=== PATIENT | female | born 1970 | race Caucasian/White ===

== ENCOUNTER 2018-10-24 22:04 | Emergency (ER) | payer OTHER ==
[~2018-10-24] VITALS: Ht 162.6 cm; Wt 118.4 kg
[2018-10-24] MEDS ORDERED: ALBU2.5V5 (22:47)
[2018-10-24] MEDS ORDERED: BENZ100A (22:47)
[2018-10-24] MEDS ORDERED: GABA100 (22:48)
[2018-10-24] MEDS ORDERED: Cough Syru100 MG/5 M (22:48)
[2018-10-24] MEDS ORDERED: MECL12.5 (22:48)
[2018-10-24] MEDS ORDERED: NITR.4SL (22:49)
[2018-10-24] MEDS ORDERED: [UNRECOGNIZED DRUG - REMARK] (22:49)
[2018-10-24] MEDS ORDERED: NYST100000 (22:50)
[2018-10-24] MEDS ORDERED: Zantac150 MG (22:50)
== END 2018-10-24 23:20 | disposition home or self-care (01) ==
LOC: ER 22:04
DX: M72.2 Plantar fascial fibromatosis (principal); Z88.0 Allergy status to penicillin; Z88.8 Allergy status to other drugs, medicaments and biological substances; Z88.6 Allergy status to analgesic agent; Z91.018 Allergy to other foods; Z91.048 Other nonmedicinal substance allergy status; Z79.899 Other long term (current) drug therapy; Z79.82 Long term (current) use of aspirin; E11.9 Type 2 diabetes mellitus without complications; J45.909 Unspecified asthma, uncomplicated; I25.2 Old myocardial infarction
CPT/HCPCS: 73630; 99283-25

== ENCOUNTER 2018-10-28 16:06 | Emergency (ER) | payer OTHER ==
[~2018-10-28] VITALS: Ht 162.6 cm; Wt 160.6 kg
[~2018-10-28 16:06] MED LIST: ALBU2.5V5; BENZ100A; Cough Syru100 MG/5 M; GABA100; MECL12.5; NITR.4SL; NYST100000; Zantac150 MG; [UNRECOGNIZED DRUG - REMARK]
[2018-10-28 16:47] LABS: BASOPHILS ABSOLUTE AUTO 0.05 K/mm3 (0.00-0.23); BASOPHILS PERCENT AUTO 1 % (0-2); EOSINOPHILS ABSOLUTE AUTO 0.15 K/mm3 (0.00-0.68); EOSINOPHILS PERCENT AUTO 2 % (0-6); Hematocrit 44.3 % (33.0-51.0); Hemoglobin 14.1 g/dL (11.5-16.0); IMMATURE GRAN ABSOLUTE AUTO 0.03 K/mm3 (0.00-0.10); IMMATURE GRAN PERCENT AUTO 0 % (0-1); LYMPHOCYTES ABSOLUTE AUTO 1.68 K/mm3 (0.84-5.20); LYMPHOCYTES PERCENT AUTO 19 % (21-46); MONOCYTES ABSOLUTE AUTO 0.79 K/mm3 (0.16-1.47); MONOCYTES PERCENT AUTO 9 % (4-13); Mean Corpuscular HGB 28.1 pg (26.0-34.0); Mean Corpuscular HGB Conc 31.8 g/dL (31.5-36.5); Mean Corpuscular Volume 88 fL (80-100); Mean Platelet Volume 10.6 fL (9.1-12.4); NEUTROPHILS ABSOLUTE AUTO 5.95 K/mm3 (1.96-9.15); NEUTROPHILS PERCENT AUTO 69 % (41-73); Platelet Count 237 K/mm3 (150-400); RDW Coefficient Variation 15.7 % (11.7-14.2); RDW Standard Deviation 50.1 fL (35.1-46.3); Red Blood Cell Count 5.02 M/mm3 (3.80-5.20); White Blood Cell Count 8.65 K/mm3 (4.00-11.30)
[2018-10-28 17:09] LABS: Troponin I <0.015 ng/mL (0.000-0.040)
[2018-10-28 17:10] LABS: Alanine Aminotransfer (ALT/SGP 47 U/L (12-78); Albumin, Blood 3.5 g/dL (3.4-5.0); Albumin/Globulin Ratio 0.9 (0.8-1.8); Alk Phos 111 U/L (50-136); Anion Gap 6 mmol/L (6-16); Aspartate Aminotrans (AST/SGOT 25 U/L (12-37); Bilirubin, Total 0.2 mg/dL (0.1-1.0); Blood Urea Nitrogen 12 mg/dL (8-24); Bun/Creatinine Ratio 13.6 (12.0-20.0); CO2, Blood 28 mmol/L (21-32); Chloride, Blood 105 mmol/L (98-108); Creatinine, Blood 0.88 mg/dL (0.40-1.00); Globulin, Blood 4.1 g/dL (2.2-4.0); Glomerular Filtration Rate >60 (60-); Glucose, Blood 259 mg/dL (70-99); Potassium, Blood 3.1 mmol/L (3.5-5.5); Sodium, Blood 139 mmol/L (136-145); Total Protein, Blood 7.6 g/dL (6.4-8.2)
[2018-10-28] MEDS ORDERED: Pepcid20 MG PO (22:12)
== END 2018-10-28 22:37 | disposition home or self-care (01) ==
LOC: ER 16:06
PROVIDERS: Physician Assistant
DX: R07.89 Other chest pain (principal); G89.29 Other chronic pain; Z88.0 Allergy status to penicillin; Z88.8 Allergy status to other drugs, medicaments and biological substances; Z88.6 Allergy status to analgesic agent; Z91.018 Allergy to other foods; Z79.899 Other long term (current) drug therapy; Z79.82 Long term (current) use of aspirin; E11.9 Type 2 diabetes mellitus without complications; I25.2 Old myocardial infarction
CPT/HCPCS: 36415; 71046; 80053; 83880; 84484; 85025; 93005; 93010; 96374; 96375; 99285-25; J1170; J2405

== ENCOUNTER 2018-10-30 04:35 | Emergency (ER) | payer OTHER ==
[~2018-10-30] VITALS: Ht 162.6 cm; Wt 160.6 kg
[~2018-10-30 04:35] MED LIST changes: +Pepcid20 MG PO
[2018-10-30 05:18] LABS: BASOPHILS ABSOLUTE AUTO 0.04 K/mm3 (0.00-0.23); BASOPHILS PERCENT AUTO 1 % (0-2); EOSINOPHILS PERCENT AUTO 2 % (0-6); Hematocrit 40.5 % (33.0-51.0); Hemoglobin 12.5 g/dL (11.5-16.0); IMMATURE GRAN ABSOLUTE AUTO 0.03 K/mm3 (0.00-0.10); IMMATURE GRAN PERCENT AUTO 0 % (0-1); LYMPHOCYTES ABSOLUTE AUTO 1.77 K/mm3 (0.84-5.20); LYMPHOCYTES PERCENT AUTO 20 % (21-46); MONOCYTES ABSOLUTE AUTO 0.82 K/mm3 (0.16-1.47); MONOCYTES PERCENT AUTO 9 % (4-13); Mean Corpuscular HGB 28.4 pg (26.0-34.0); Mean Corpuscular HGB Conc 30.9 g/dL (31.5-36.5); Mean Platelet Volume 10.4 fL (9.1-12.4); NEUTROPHILS ABSOLUTE AUTO 5.99 K/mm3 (1.96-9.15); NEUTROPHILS PERCENT AUTO 68 % (41-73); Platelet Count 216 K/mm3 (150-400); RDW Coefficient Variation 15.7 % (11.7-14.2); RDW Standard Deviation 52.4 fL (35.1-46.3); White Blood Cell Count 8.85 K/mm3 (4.00-11.30)
[2018-10-30 05:21] LABS: Mean Corpuscular Volume 92 fL (80-100)
[2018-10-30 05:39] LABS: Alanine Aminotransfer (ALT/SGP 37 U/L (12-78); Albumin, Blood 2.7 g/dL (3.4-5.0); Albumin/Globulin Ratio 0.8 (0.8-1.8); Alk Phos 88 U/L (50-136); Anion Gap 4 mmol/L (6-16); Aspartate Aminotrans (AST/SGOT 18 U/L (12-37); Bilirubin, Total 0.2 mg/dL (0.1-1.0); Blood Urea Nitrogen 15 mg/dL (8-24); Bun/Creatinine Ratio 15.9 (12.0-20.0); CO2, Blood 31 mmol/L (21-32); Calcium, Blood 8.7 mg/dL (8.5-10.1); Chloride, Blood 108 mmol/L (98-108); Creatinine, Blood 0.94 mg/dL (0.40-1.00); Globulin, Blood 3.6 g/dL (2.2-4.0); Glomerular Filtration Rate >60 (60-); Glucose, Blood 151 mg/dL (70-99); Potassium, Blood 3.5 mmol/L (3.5-5.5); Sodium, Blood 143 mmol/L (136-145); Total Protein, Blood 6.3 g/dL (6.4-8.2); Troponin I <0.015 ng/mL (0.000-0.040)
[2018-10-30] MEDS ORDERED: ONDA4ODT MM (06:07)
== END 2018-10-30 06:25 | disposition home or self-care (01) ==
LOC: ER 04:35
PROVIDERS: Emergency Medicine
DX: R07.89 Other chest pain (principal); Z88.0 Allergy status to penicillin; Z88.8 Allergy status to other drugs, medicaments and biological substances; Z88.6 Allergy status to analgesic agent; Z88.7 Allergy status to serum and vaccine; Z91.018 Allergy to other foods; Z91.048 Other nonmedicinal substance allergy status; Z79.899 Other long term (current) drug therapy; Z79.82 Long term (current) use of aspirin; E11.9 Type 2 diabetes mellitus without complications
CPT/HCPCS: 36415; 71046; 80053; 84484; 85025; 93005; 93010; 96374; 99285-25; J2405

== ENCOUNTER 2018-11-01 22:50 | Emergency (ER) | payer OTHER ==
[~2018-11-01] VITALS: Ht 167.6 cm; Wt 168.3 kg
[~2018-11-01 22:50] MED LIST changes: +ONDA4ODT MM
[2018-11-01 23:09] LABS: BASOPHILS ABSOLUTE AUTO 0.05 K/mm3 (0.00-0.23); BASOPHILS PERCENT AUTO 1 % (0-2); EOSINOPHILS ABSOLUTE AUTO 0.24 K/mm3 (0.00-0.68); EOSINOPHILS PERCENT AUTO 2 % (0-6); Hematocrit 40.6 % (33.0-51.0); Hemoglobin 12.7 g/dL (11.5-16.0); IMMATURE GRAN ABSOLUTE AUTO 0.04 K/mm3 (0.00-0.10); IMMATURE GRAN PERCENT AUTO 0 % (0-1); LYMPHOCYTES ABSOLUTE AUTO 1.85 K/mm3 (0.84-5.20); LYMPHOCYTES PERCENT AUTO 17 % (21-46); MONOCYTES ABSOLUTE AUTO 0.88 K/mm3 (0.16-1.47); MONOCYTES PERCENT AUTO 8 % (4-13); Mean Corpuscular HGB 28.8 pg (26.0-34.0); Mean Corpuscular HGB Conc 31.3 g/dL (31.5-36.5); Mean Corpuscular Volume 92 fL (80-100); Mean Platelet Volume 10.6 fL (9.1-12.4); NEUTROPHILS ABSOLUTE AUTO 7.87 K/mm3 (1.96-9.15); NEUTROPHILS PERCENT AUTO 72 % (41-73); Platelet Count 220 K/mm3 (150-400); RDW Coefficient Variation 15.8 % (11.7-14.2); RDW Standard Deviation 53.2 fL (35.1-46.3); Red Blood Cell Count 4.41 M/mm3 (3.80-5.20); White Blood Cell Count 10.93 K/mm3 (4.00-11.30)
[2018-11-01 23:31] LABS: International Normalized Ratio 1.01; Prothrombin Time Results 10.7 Sec (9.7-11.5)
[2018-11-01 23:32] LABS: Alanine Aminotransfer (ALT/SGP 34 U/L (12-78); Albumin, Blood 2.7 g/dL (3.4-5.0); Albumin/Globulin Ratio 0.7 (0.8-1.8); Alk Phos 89 U/L (50-136); Anion Gap 7 mmol/L (6-16); Aspartate Aminotrans (AST/SGOT 25 U/L (12-37); Bilirubin, Total 0.4 mg/dL (0.1-1.0); Blood Urea Nitrogen 14 mg/dL (8-24); Bun/Creatinine Ratio 15.7 (12.0-20.0); CO2, Blood 30 mmol/L (21-32); Calcium, Blood 8.8 mg/dL (8.5-10.1); Chloride, Blood 106 mmol/L (98-108); Creatinine, Blood 0.89 mg/dL (0.40-1.00); Globulin, Blood 3.9 g/dL (2.2-4.0); Glomerular Filtration Rate >60 (60-); Glucose, Blood 147 mg/dL (70-99); Potassium, Blood 3.7 mmol/L (3.5-5.5); Sodium, Blood 143 mmol/L (136-145); Total Protein, Blood 6.6 g/dL (6.4-8.2); Troponin I <0.015 ng/mL (0.000-0.040)
[2018-11-02] MEDS ORDERED: Prednisone20 MG PO (01:00)
== END 2018-11-02 01:19 | disposition home or self-care (01) ==
LOC: ER 22:50
PROVIDERS: Emergency Medicine
DX: R07.9 Chest pain, unspecified (principal); Z88.0 Allergy status to penicillin; Z88.8 Allergy status to other drugs, medicaments and biological substances; Z88.1 Allergy status to other antibiotic agents; Z88.5 Allergy status to narcotic agent; Z88.7 Allergy status to serum and vaccine; Z88.6 Allergy status to analgesic agent; Z91.018 Allergy to other foods; Z79.899 Other long term (current) drug therapy; Z79.82 Long term (current) use of aspirin; E11.9 Type 2 diabetes mellitus without complications; J45.909 Unspecified asthma, uncomplicated; I25.2 Old myocardial infarction; F25.9 Schizoaffective disorder, unspecified
CPT/HCPCS: 71046; 80053; 84484; 85025; 85610; 85730; 93005; 93010; 99285-25

== ENCOUNTER 2018-11-02 22:07 | Emergency (ER) | payer OTHER ==
[~2018-11-02] VITALS: Ht 157.5 cm; Wt 168.3 kg
[~2018-11-02 22:07] MED LIST changes: +Prednisone20 MG PO
== END 2018-11-03 00:05 | disposition home or self-care (01) ==
LOC: ER 22:07
DX: R07.9 Chest pain, unspecified (principal); E11.9 Type 2 diabetes mellitus without complications; J45.909 Unspecified asthma, uncomplicated; I25.2 Old myocardial infarction; F25.9 Schizoaffective disorder, unspecified; Z88.0 Allergy status to penicillin; Z88.1 Allergy status to other antibiotic agents; Z88.5 Allergy status to narcotic agent; Z88.8 Allergy status to other drugs, medicaments and biological substances; Z91.018 Allergy to other foods; Z91.048 Other nonmedicinal substance allergy status; Z79.82 Long term (current) use of aspirin; Z79.899 Other long term (current) drug therapy
CPT/HCPCS: 36415; 93005; 93010; 99285-25

== ENCOUNTER → 2018-11-08 | Outpatient (CLI) | payer OTHER ==
[~2018-11-08] MED LIST changes: +ALBU90OI INH; +ARIP30 PO; +ASCO500 PO; +Aspirin EC81 MG PO; +BENZ100A PO; +Buspirone HCl15 MG PO; +CELE100 PO; +CIPR500 PO; +CYCL10 PO; +DULO60 PO; +DULOXETINE HCL30 MG PO; +Diabetic Tussi118 ML PO; +Dyazide 37.5-21 EACH PO; +FAMO20 PO; +LAMO100 PO; +Lopressor 25 mg25 MG PO; +MEROPENEM1 GM IV; +MONT10T PO; +ONDA4 PO; +PRAZ1 PO; +PREG50 PO; +PRENATAL TABLE1 EAC2 PO; +PROM25S PR; +PYRI100 PO; +Pravachol40 MG PO; +Protonix40 MG PO; +SITA100T2 PO; +Sucralfate1 GM PO; +TOPI50 PO; +TRULICITY1.5 MG/0.5 SC; +ZALE10 PO
== END | disposition home or self-care (01) ==
LOC: LAB 06:45 → LAB SHORT 06:45
DX: R07.89 Other chest pain (principal); K21.9 Gastro-esophageal reflux disease without esophagitis
CPT/HCPCS: 87338

== ENCOUNTER 2018-11-26 18:52 | Emergency (ER) | payer OTHER ==
[~2018-11-26] VITALS: Ht 162.6 cm; Wt 166.5 kg
[~2018-11-26 18:52] MED LIST changes: -ALBU90OI INH; -ARIP30 PO; -ASCO500 PO; -Aspirin EC81 MG PO; -BENZ100A PO; -Buspirone HCl15 MG PO; -CELE100 PO; -CIPR500 PO; -CYCL10 PO; -DULO60 PO; -DULOXETINE HCL30 MG PO; -Diabetic Tussi118 ML PO; -Dyazide 37.5-21 EACH PO; -FAMO20 PO; -LAMO100 PO; -Lopressor 25 mg25 MG PO; -MEROPENEM1 GM IV; -MONT10T PO; -ONDA4 PO; -PRAZ1 PO; -PREG50 PO; -PRENATAL TABLE1 EAC2 PO; -PROM25S PR; -PYRI100 PO; -Pravachol40 MG PO; -Protonix40 MG PO; -SITA100T2 PO; -Sucralfate1 GM PO; -TOPI50 PO; -TRULICITY1.5 MG/0.5 SC; -ZALE10 PO
[2018-11-26] MEDS ORDERED: PREG50 PO (19:26)
[2018-11-26] MEDS ORDERED: DULOXETINE HCL30 MG PO (19:28)
== END 2018-11-26 19:35 | disposition home or self-care (01) ==
LOC: ER 18:52
DX: E11.40 Type 2 diabetes mellitus with diabetic neuropathy, unspecified (principal); Z88.1 Allergy status to other antibiotic agents; Z88.8 Allergy status to other drugs, medicaments and biological substances; Z91.018 Allergy to other foods; Z79.899 Other long term (current) drug therapy; J45.909 Unspecified asthma, uncomplicated; I25.2 Old myocardial infarction
CPT/HCPCS: 99283

== ENCOUNTER 2018-12-06 19:06 | Inpatient (IN) | payer OTHER ==
[~2018-12-06] VITALS: Ht 162.6 cm; Wt 165.3 kg
[~2018-12-06 19:06] MED LIST changes: +DULOXETINE HCL30 MG PO; +PREG50 PO
[2018-12-06 19:32] LABS: BASOPHILS ABSOLUTE AUTO 0.03 K/mm3 (0.00-0.23); BASOPHILS PERCENT AUTO 0 % (0-2); EOSINOPHILS PERCENT AUTO 0 % (0-6); Hematocrit 44.8 % (33.0-51.0); Hemoglobin 14.6 g/dL (11.5-16.0); IMMATURE GRAN ABSOLUTE AUTO 0.05 K/mm3 (0.00-0.10); IMMATURE GRAN PERCENT AUTO 1 % (0-1); LYMPHOCYTES ABSOLUTE AUTO 0.71 K/mm3 (0.84-5.20); LYMPHOCYTES PERCENT AUTO 7 % (21-46); MONOCYTES ABSOLUTE AUTO 0.64 K/mm3 (0.16-1.47); MONOCYTES PERCENT AUTO 6 % (4-13); Mean Corpuscular HGB 28.3 pg (26.0-34.0); Mean Corpuscular HGB Conc 32.6 g/dL (31.5-36.5); Mean Corpuscular Volume 87 fL (80-100); Mean Platelet Volume 10.5 fL (9.1-12.4); NEUTROPHILS ABSOLUTE AUTO 9.44 K/mm3 (1.96-9.15); NEUTROPHILS PERCENT AUTO 87 % (41-73); Platelet Count 234 K/mm3 (150-400); RDW Coefficient Variation 15.4 % (11.7-14.2); Red Blood Cell Count 5.16 M/mm3 (3.80-5.20); White Blood Cell Count 10.87 K/mm3 (4.00-11.30)
[2018-12-06 19:51] LABS: Alanine Aminotransfer (ALT/SGP 56 U/L (12-78); Albumin, Blood 3.2 g/dL (3.4-5.0); Albumin/Globulin Ratio 0.7 (0.8-1.8); Alk Phos 101 U/L (50-136); Anion Gap 6 mmol/L (6-16); Aspartate Aminotrans (AST/SGOT 34 U/L (12-37); Bilirubin, Total 0.4 mg/dL (0.1-1.0); Blood Urea Nitrogen 17 mg/dL (8-24); Bun/Creatinine Ratio 19.3 (12.0-20.0); CO2, Blood 27 mmol/L (21-32); Calcium, Blood 9.2 mg/dL (8.5-10.1); Chloride, Blood 103 mmol/L (98-108); Creatinine, Blood 0.88 mg/dL (0.40-1.00); Ethanol (Alcohol), Blood, Med <3 mg/dL; Globulin, Blood 4.8 g/dL (2.2-4.0); Glomerular Filtration Rate >60 (60-); Glucose, Blood 157 mg/dL (70-99); Potassium, Blood 3.5 mmol/L (3.5-5.5); Sodium, Blood 136 mmol/L (136-145); Troponin I <0.015 ng/mL (0.000-0.040)
[2018-12-06 19:55] LABS: Salicylate <1.7 mg/dL (2.8-20.0)
[2018-12-06 19:56] LABS: Acetaminophen, Random <2.0 ug/mL (10.0-30.0)
[2018-12-06 19:58] LABS: Source, Urine Catheter
[2018-12-06 20:06] LABS: Bilirubin, Urine Neg (Neg); Blood, Urine 2+ (Neg); Glucose Qualitative, Urine Neg (Neg); Ketones, Urine Neg (Neg); Leukocyte Esterase, Urine 3+ (Neg); Nitrite, Urine Neg (Neg); Protein, Urine 2+ (Neg); Urobilinogen, Urine NORM (Normal)
[2018-12-06 20:22] LABS: U Amphetamine Screen Not Detected; U Barbituate Screen Not Detected; U Benzodiazapine Screen DETECTED; U Buprenorphine Screen Not Detected; U Cannabinoids Screen Not Detected; U Cocaine Screen Not Detected; U Methadone Screen Not Detected; U Methamphetamine Screen Not Detected; U Opiates Screen Not Detected; U Oxycodone Screen Not Detected; U Phencyclidine Screen Not Detected; U Propoxyphene Screen Not Detected
[2018-12-06 20:23] LABS: Appearance, Urine Cloudy (Clear); Color, Urine Yellow (P-Yellow)
[2018-12-06 20:24] LABS: Bacteria Many /hpf; Squamous Epithelial Cells Few /hpf (Few); White Blood Cells, Urine TNTC /hpf (0-5)
[2018-12-06] MEDS ORDERED: PREG50 PO (21:16)
[2018-12-06] MEDS ORDERED: TRULICITY1.5 MG/0.5 SC (21:18)
[2018-12-06] MEDS ORDERED: Aspirin EC81 MG PO (21:19)
[2018-12-06] MEDS ORDERED: Buspirone HCl15 MG PO (21:22)
[2018-12-06] MEDS ORDERED: ARIP30 PO (21:22)
[2018-12-06] MEDS ORDERED: LAMO100 PO (21:23)
[2018-12-06] MEDS ORDERED: PRAZ1 PO (21:23)
[2018-12-06] MEDS ORDERED: DULO60 PO (21:23)
[2018-12-06] MEDS ORDERED: Protonix40 MG PO (21:24)
[2018-12-06] MEDS ORDERED: Sucralfate1 GM PO (21:27)
[2018-12-06] MEDS ORDERED: SITA100T2 PO (21:28)
[2018-12-06] MEDS ORDERED: CELE100 PO (21:28)
[2018-12-06] MEDS ORDERED: Dyazide 37.5-21 EACH PO (21:30)
[2018-12-06] MEDS ORDERED: FAMO20 PO (21:31)
[2018-12-06] MEDS ORDERED: Pravachol40 MG PO (21:32)
[2018-12-06] MEDS ORDERED: Lopressor 25 mg25 MG PO (21:33)
[2018-12-06] MEDS ORDERED: ASCO500 PO (21:35)
[2018-12-06] MEDS ORDERED: MONT10T PO (21:39)
[2018-12-06] MEDS ORDERED: CYCL10 PO (21:41)
[2018-12-06] MEDS ORDERED: PYRI100 PO (21:42)
[2018-12-06] MEDS ORDERED: PRENATAL TABLE1 EAC2 PO (21:42)
[2018-12-06] MEDS ORDERED: TOPI50 PO (21:44)
[2018-12-06] MEDS ORDERED: ZALE10 PO (21:45)
[2018-12-06] MEDS ORDERED: ONDA4 PO (21:46)
--- NOTE | 2018-12-06 23:30 | NUR ---
PATIENT ARRIVED TO ICU 8 VIA GURNEY FROM ED WITH DX OF SEPSIS FOR DOCTOR CORNELIA. PATIENT LETHARGIC AWAKENS EASILY AND TRANSFERRED TO BED USING SLIDER SHEET. PATIENT PLACED ON ICU MONITORS. PATIENT ATTEMPTING TO ASSIST WITH POSITIONING IN BED, GENERALIZED WEAKNESS. PATIENT ABLE TO PROVIDE ADMIT HISTORY. PATIENT C/O BUTLER VERBALIZED HX OF MIGRANS. ALSO C/O GENERALIZED BODY ACHING. WHEN ASKED WHAT SHE USES AT HOME FOR HER CHRONIC BACK PAIN AND NEUROPATHY PAIN PATIENT STATES "NOTHING HELPS". PLAN TO PLACE SWEET WITH TEMP PROBE TO MONITOR I&O CLOSELY AND ALSO TO MONITOR FEVER CLOSELY. PLAN TO CONTINUE TO GIVE TYLENOL ORDERED FOR FEVER.
--- NOTE | 2018-12-07 01:24 | NUR ---
-Sleep study note -After PT removed his sleep study probe off of his finger multiple times and restarting the study, PT refused the sleep study for the rest of the night. -RN aware
--- NOTE | 2018-12-07 02:40 | NUR ---
PATIENT ASSISTING WITH REPOSITIONING IN BED. AFTER TURNING TO HER LEFT SIDE HAD NAUSEA AND 100 CC OF YELLOW EMESIS. FEVER CONTINUES, COOL CLOTH PLACED TO BACK OF NECK, AND ZOFRAN GIVEN.
[2018-12-07 04:26] LABS: Hematocrit 42.7 % (33.0-51.0); Hemoglobin 13.6 g/dL (11.5-16.0); Mean Corpuscular HGB 28.5 pg (26.0-34.0); Mean Corpuscular HGB Conc 31.9 g/dL (31.5-36.5); Mean Corpuscular Volume 89 fL (80-100); Mean Platelet Volume 10.2 fL (9.1-12.4); Platelet Count 189 K/mm3 (150-400); RDW Coefficient Variation 15.5 % (11.7-14.2); RDW Standard Deviation 50.8 fL (35.1-46.3); Red Blood Cell Count 4.78 M/mm3 (3.80-5.20); White Blood Cell Count 10.04 K/mm3 (4.00-11.30)
[2018-12-07 04:44] LABS: Alanine Aminotransfer (ALT/SGP 58 U/L (12-78); Albumin, Blood 2.8 g/dL (3.4-5.0); Albumin/Globulin Ratio 0.7 (0.8-1.8); Alk Phos 87 U/L (50-136); Anion Gap 7 mmol/L (6-16); Aspartate Aminotrans (AST/SGOT 41 U/L (12-37); Bilirubin, Total 0.4 mg/dL (0.1-1.0); Blood Urea Nitrogen 15 mg/dL (8-24); CO2, Blood 27 mmol/L (21-32); Calcium, Blood 8.2 mg/dL (8.5-10.1); Chloride, Blood 106 mmol/L (98-108); Creatinine, Blood 0.88 mg/dL (0.40-1.00); Globulin, Blood 4.2 g/dL (2.2-4.0); Glomerular Filtration Rate >60 (60-); Glucose, Blood 149 mg/dL (70-99); Potassium, Blood 3.3 mmol/L (3.5-5.5); Sodium, Blood 140 mmol/L (136-145)
[2018-12-07 04:46] LABS: CPK Creatine Kinase 133 U/L (26-193); Troponin I <0.015 ng/mL (0.000-0.040)
--- NOTE | 2018-12-07 05:13 | NUR ---
SUMMARY PATIENT APPEARS MORE RELAXED AND COMFORTABLE. FEVER CONTINUES BUT IS GOING DOWN. AND PATIENT NO LONGER VERBALIZING THAT SHE FEELS COLD. OXYGEN SAT DOWN TO 87% WHILE SLEEPING, PATIENT REFUSING BIPAP, OXYGEN PLACED AT 2L/NC WHILE SLEEPING. PATIENT TEARFUL AT TIMES DURING THE NIGHT.
--- NOTE | 2018-12-07 10:27 | NUR ---
0745: CARE ASSUMED, ASSESSMENT COMPLETED. PT FEBRILE, OTHER VSS AT THIS TIME. PT REPORTS NAUSEA AND GENERALIZED PAIN, NO EMESIS. POTASSIUM INFUSING PER ORDERS, NS 100ML/HR. SWEET PATENT AND DRAINING, URINE YELLOW WITH A SIGNIFICANT AMOUNT OF WHITE SEDIMENT PRESENT. PT DROWSY BUT ORIENTED, TEARFUL AT TIMES. 0820: TYLENOL ADMINISTERED FOR TEMP 102.7 PER TEMP PROBE SWEET, P.O. MEDS TOLERATED WELL WITH SIPS OF WATER. ZOFRAN FOR NAUSEA. PT REPOSITIONED, BLANKETS REMOVED, REFUSING COOL WASH CLOTH FOR HEAD STATING SHE FEELS COLD. 1030: PT REPOSITIONED, S/O AND CAREGIVER AT BEDSIDE. PT REMAINS DROWSY BUT ORIENTED, DENIES OTHER NEEDS. TEMP 101.5, NO TEARFULNESS NOTED, PT COOPERATIVE AND APPROPRIATE, THOUGH WITHDRAWN.
--- NOTE | 2018-12-07 12:01 | NUR ---
1145: DR. WANG AT BEDSIDE TO ASSESS. LABS DRAWN. NS RATE INCREASED TO 999ML/HR FOR CURRENT LITER PER DR. WANG, THEN WILL REDUCE TO 125ML/HR. PT REPORTS SHARP UPPER ABD PAIN, ABD SOFT, BT ACTIVE X4, AWARE OF PAIN. TEMP 101.2, OTHER VSS.
[2018-12-07 12:27] LABS: CPK Creatine Kinase 317 U/L (26-193); Troponin I <0.015 ng/mL (0.000-0.040)
[2018-12-07 12:42] LABS: Creatine Kinase MB Index 0.9 (0.0-4.0)
--- NOTE | 2018-12-07 13:10 | NUR ---
PT IN ROOM TEARFUL, STATES BREATHING IS PAINFUL TO LEFT SIDE/ABD AREA. HRR, LS CTA, PT DENIES CHEST PAIN/PRESSURE, REPORTS PAIN TO SIDE AND ABDOMEN IS SHARP SHOOTING. NOTIFIED, NEW ORDERS RECEIVED, MEDICATED WITH DILAUDID PER ORDERS. PT RESPONDED WELL, SLEEPING AT THIS TIME, RR 20/MIN. TEMP 102.6, OTHER VSS.
--- NOTE | 2018-12-07 15:05 | NUR ---
PT AWAKE, DENIES PAIN AT THIS TIME, MEDICATED FOR NAUSEA PER ORDERS. TEMP 100.8, OTHER VSS.
--- NOTE | 2018-12-07 17:56 | NUR ---
PT C/O CHEST PAIN, LUQ ABD PAIN, AND BILAT FOOT PAIN. MEDICATED PER ORDERS. DR. WANG AWARE OF BLOOD CULTURE RESULTS, NEW ORDERS RECEIVE. PT'S TEMP 102.9 AT THIS TIME, BLANKETS REMAIN OFF, ROOM TEMPERATURE DOWN. WILL CONTINUE TO MONITOR. BP 140/76. PT'S MOTHER AND S/O AT BEDSIDE.
--- NOTE | 2018-12-07 18:45 | NUR ---
TEMP 101.8 AT THIS TIME, PT SLEEPING, VSS. BP NORMOTENSIVE AND HR WNL T/O SHIFT, TEMPERATURE 100.7-102.9 DESPITE TYLENOL Q4H. PT'S SKIN FLUSHED OFF AND ON WITH TEMPERATURE INCREASES. PT C/O CHEST PAIN THIS EVENING WITHOUT RADIATION OR PRESSURE, TROPONINS NEGATIVE. LS CTA, BT+, ABD SOFT BUT PAINFUL IN LUQ, PT NAUSEATED INTERMITTENTLY. URINE OUTPUT GOOD, URINE REMAINS CLOUDY WITH WHITE SEDIMENT. CARLOSO ORDERED, AWAITING ARRIVAL FROM PHARMACY. PT'S MOTHER AND S/O AT BEDSIDE, REPORT TO ONCOMING SHIFT.
--- NOTE | 2018-12-07 19:39 | NUR ---
ASSUMED PT CARE AT 1915 PT RESTING IN BED AND TEARFUL THAT SHE IS COLD AND IN PAIN. STATES PAIN IS TO LEFT "RIB" AREA; HOWEVER, UPON ABDOMINAL ASSESSMENT IT APPEARS PT IS TENDER TO LEFT UPPER QUADRANT. PT CLAIMS THE PAIN IS SHARP AND SHOOTING AROUND TO HER BACK SIDE. SHE ALSO IS TEARFUL AND STATES THAT HER LEGS ARE ACHING WELL. REPOSITIONED PT TO LEFT SIDE FOR COMFORT. PT CLAIMED THAT THE PAIN MEDICATION THAT WAS ADMINISTERED EARLIER DIDN'T HELP RELIEVE THE PAIN TO HER "RIBS". PT THINKS SHE MAY HAVE HAD A BM THE DAY BEFORE YESTERDAY, BUT ISN'T SURE. BOWEL TONES ARE HYPOACTIVE TO ALL FOUR QUADRANTS. TEMP 101.6; PT ASKING FOR MORE BLANKETS, BUT EDUCATED AND REINFORCED REGARDING FEVER AND SUGGESTED A SHEET INSTEAD. SWEET CATH IS PATENT AND DRAINING DARK YELLOW URINE TO GRAVITY; NO SEDIMENT NOTED AT THIS TIME. PT STARTED ON VANCOMYOCIN AND CONTINUES ON ROCEPHIN FOR HER UTI. ABBY IS AT BEDSIDE. PT REMAINS ALERT AND ABLE TO MAKE HER NEEDS KNOWN. CALL LIGHT IS WITHIN REACH.
--- NOTE | 2018-12-07 22:07 | NUR ---
ADMINISTERED TYLENOL DUE TO INCREASING TEMPERATURE OF 102.6; UPON PT WAKING UP SHE STARTED SHIVERING STATING SHE WAS COLD. TEMP INCREASED TO 103.1; COVERED WITH ONE BLANKET TO HELP PREVENT SHIVERING. WILL CONTINUE TO MONITOR TEMP AND SHIVERING.
--- NOTE | 2018-12-07 22:56 | NUR ---
SIRISHA VASQUEZ RETURNED CALL. NEW ORDERS FOR APAP 500MG X ONE PT HAS AN ALLERGIC REACTION TO NSAID'S.
[2018-12-08 04:07] LABS: BASOPHILS ABSOLUTE AUTO 0.03 K/mm3 (0.00-0.23); BASOPHILS PERCENT AUTO 1 % (0-2); EOSINOPHILS PERCENT AUTO 0 % (0-6); Hematocrit 42.6 % (33.0-51.0); Hemoglobin 13.3 g/dL (11.5-16.0); IMMATURE GRAN ABSOLUTE AUTO 0.05 K/mm3 (0.00-0.10); IMMATURE GRAN PERCENT AUTO 1 % (0-1); LYMPHOCYTES ABSOLUTE AUTO 0.75 K/mm3 (0.84-5.20); LYMPHOCYTES PERCENT AUTO 15 % (21-46); MONOCYTES ABSOLUTE AUTO 0.33 K/mm3 (0.16-1.47); MONOCYTES PERCENT AUTO 7 % (4-13); Mean Corpuscular HGB 28.3 pg (26.0-34.0); Mean Corpuscular HGB Conc 31.2 g/dL (31.5-36.5); Mean Corpuscular Volume 91 fL (80-100); Mean Platelet Volume 10.4 fL (9.1-12.4); NEUTROPHILS ABSOLUTE AUTO 3.84 K/mm3 (1.96-9.15); NEUTROPHILS PERCENT AUTO 77 % (41-73); Platelet Count 156 K/mm3 (150-400); RDW Coefficient Variation 15.5 % (11.7-14.2); RDW Standard Deviation 51.4 fL (35.1-46.3)
[2018-12-08 04:39] LABS: Alanine Aminotransfer (ALT/SGP 87 U/L (12-78); Albumin, Blood 2.5 g/dL (3.4-5.0); Albumin/Globulin Ratio 0.6 (0.8-1.8); Anion Gap 6 mmol/L (6-16); Aspartate Aminotrans (AST/SGOT 84 U/L (12-37); Bilirubin, Total 0.5 mg/dL (0.1-1.0); Blood Urea Nitrogen 8 mg/dL (8-24); Bun/Creatinine Ratio 8.5 (12.0-20.0); CO2, Blood 28 mmol/L (21-32); Chloride, Blood 108 mmol/L (98-108); Creatinine, Blood 0.94 mg/dL (0.40-1.00); Glomerular Filtration Rate >60 (60-); Glucose, Blood 92 mg/dL (70-99); Magnesium, Blood 1.9 mg/dL (1.6-2.4); Potassium, Blood 3.3 mmol/L (3.5-5.5); Sodium, Blood 142 mmol/L (136-145); Total Protein, Blood 6.5 g/dL (6.4-8.2)
[2018-12-08 04:50] LABS: Alk Phos 79 U/L (50-136); Triiodothyronine, Free 1.22 pg/mL (2.18-3.98)
--- NOTE | 2018-12-08 05:44 | NUR ---
END OF SHIFT SUMMARY TMAX THIS SHIFT OF 104.0. PT WAS MEDICATED WITH TYLENOL WITH TEMP AT 102.6; IT QUICKLY INCREASED TO 104 ONCE PT STARTED SHIVERING. ATTEMPTED TO MAKE PT COMFORTABLE WITH COVERING HER WITH ONE BLANKET AND ADJUSTING ROOM HEAT SETTINGS. MEDICATED WITH ANOTHER 500MG OF TYENOL PER ORDERS. TEMPERATURE DROPPED TO 99.8 AT APPROXIMATELY 0230. PT WAS NOTED TO BE VERY DIAPHORETIC AND CLAMMY; GAVE A COMPLETE BED BATH AND CHANGED OUT LINEN. TEMP HAS REMAINED BELOW 100 SINCE. PT MORE ALERT AND NOT TEARFUL WITH COMMUNICATION. STILL COMPLAINS OF ACHES AND PAINS; ENCOURAGED PT TO GET OUT OF BED ON DAY SHIFT TO HELP PREVENT HER PAIN. SWEET CATH REMAINS PATENT AND DRAINING TO GRAVITY; DARK, YELLOW URINE. NS INFUSING AT 125MLS/HR VIA POWERGLIDE TO BRUNILDA. ORDERS FROM DR. LOCKE TO ADMINISTER KPHOS 20 MMOL X1 BAG SECONDARY TO LAB RESULTS. CALL LIGHT IS WITHIN REACH. PT IS ABLE TO MAKE HER NEEDS KNOWN. WILL CONTINUE TO MONITOR UNTIL REPORT IS HANDED OFF TO ONCOMING RN.
--- NOTE | 2018-12-08 08:39 | NUR ---
CARE ASSUMED, ASSESSMENT COMPLETED. TEMP REMAINS FEBRILE AT 100-101, PT'S FACE SLIGHTLY FLUSHED. VSS, METOPROLOL HELD FOR SBP 119 AND HR 80'S TO PREVENT HYPOTENSION WITH SEPSIS. NS, VANCO, AND K PHOS INFUSING PER ORDERS. PT AWAKE, ALERT AND ORIENTED X4, MOODS LABILE, PT COOPERATIVE. FIELD START IV DC'D. PT REPOSITIONED SELF IN BED WITH VERBAL DIRECTION, IS SITTING UP SIPPING FLUIDS. DENIES OTHER NEEDS.
--- NOTE | 2018-12-08 10:21 | NUR ---
PT C/O NAUSEA, MEDICATED WITH ZOFRAN PER ORDERS. PT REPOSITIONED, DENIES OTHER NEEDS AT THIS TIME. TEMP 99.5, OTHER VSS.
--- NOTE | 2018-12-08 17:37 | NUR ---
1200: PT SITTING UP IN BED ATTEMPTING TO EAT FULL LIQUID LUNCH, DENIES NAUSEA AT THIS TIME, IS EATING SLOWLY. VSS, CAREGIVER AT BEDSIDE VISITING. PT'S TEMPERATURE HAS BEEN BELOW 100.0 SINCE 0900 THIS MORNING, BP AND HR WNL. PT NO LONGER FLUSHED OR DROWSY, AFFECT REMAINS FLAT, PT INTERMITTENTLY TEARFUL. DENIES C/O AT THIS TIME, IS CALM AND COOPERATIVE. 1400: DR. WANG HAS BEEN IN TO SEE PT, NEW ORDERS RECEIVED. NOTIFIED OF PT'S LACK OF BM SINCE ADMIT, NO BOWEL CARE ORDERS. ABD SOFT, TENDER IN UPPER QUADRANTS, BT HYPOACTIVE. PT REMAINS AFEBRILE WITH TEMPS OF 99. 1430: SWEET CATHETER REMOVED WNL, URINE CLEAR YELLOW. S/O AND HIS MOTHER NOW AT BEDSIDE. 1600: PT UP TO BSC TO ATTEMPT TO HAVE BM, NO SUCCESS. GAIT STEADY WITH 1 PERSON ASSIST. PT WAS ABLE TO VOID WITHOUT DIFFICULTY. SUPPLEMENTAL O2 REMOVED, SPO2 >90% ON RA, TEMP REMAINS 99, VSS. 1700: PT TO ICU 12, REPORT TO SHELLY FELIX.
--- NOTE | 2018-12-08 17:39 | NUR ---
ASSUMED CARE PT. SITTING UP IN BED WATCHING TV. PT ALERT AND ORIENTED. NADN. CURRENTLY ON RA, VSS. WILL REPORT OFF TO ONCOMING RN.
[2018-12-09 05:29] LABS: BASOPHILS ABSOLUTE AUTO 0.02 K/mm3 (0.00-0.23); BASOPHILS PERCENT AUTO 0 % (0-2); EOSINOPHILS ABSOLUTE AUTO 0.06 K/mm3 (0.00-0.68); EOSINOPHILS PERCENT AUTO 1 % (0-6); Hematocrit 42.2 % (33.0-51.0); Hemoglobin 13.3 g/dL (11.5-16.0); IMMATURE GRAN ABSOLUTE AUTO 0.03 K/mm3 (0.00-0.10); IMMATURE GRAN PERCENT AUTO 1 % (0-1); LYMPHOCYTES PERCENT AUTO 23 % (21-46); MONOCYTES ABSOLUTE AUTO 0.62 K/mm3 (0.16-1.47); MONOCYTES PERCENT AUTO 12 % (4-13); Mean Corpuscular HGB 28.3 pg (26.0-34.0); Mean Corpuscular HGB Conc 31.5 g/dL (31.5-36.5); Mean Corpuscular Volume 90 fL (80-100); Mean Platelet Volume 10.2 fL (9.1-12.4); NEUTROPHILS ABSOLUTE AUTO 3.38 K/mm3 (1.96-9.15); NEUTROPHILS PERCENT AUTO 64 % (41-73); Platelet Count 159 K/mm3 (150-400); RDW Coefficient Variation 15.4 % (11.7-14.2); RDW Standard Deviation 51.1 fL (35.1-46.3); White Blood Cell Count 5.31 K/mm3 (4.00-11.30)
--- NOTE | 2018-12-09 05:42 | NUR ---
END OF SHIFT: PT WITH NO EVENTS DURING NOC. VSS. AFEBRILE. PT USING CALL LIGHT APPROPRIATELY WHEN NEEDING BSC. PT ABLE TO STAND, PIVET, AND PLACE SELF WITHOUT DIFFICULTY. PT TURNS SELF IN BED. REFUSING TO USE CPAP BUT IS 97% ON RA WHEN SPOT-CHECKED. PT C/O INTERMITTANT RIB PAIN AND UPPER ABD PAIN WHICH WAS RELIEVED FOR A SHORT TIME AFTER LARGE BM AND RELEASE OF FLATUS. PT OTHERWISE SLEPT WELL THROUGH NOC, AWAKENING FOR SHORT PERIODS WATCHING TV.
[2018-12-09 05:51] LABS: Alanine Aminotransfer (ALT/SGP 89 U/L (12-78); Albumin, Blood 2.5 g/dL (3.4-5.0); Albumin/Globulin Ratio 0.6 (0.8-1.8); Alk Phos 84 U/L (50-136); Anion Gap 8 mmol/L (6-16); Aspartate Aminotrans (AST/SGOT 64 U/L (12-37); Bilirubin, Total 0.3 mg/dL (0.1-1.0); Blood Urea Nitrogen 9 mg/dL (8-24); Bun/Creatinine Ratio 9.6 (12.0-20.0); CO2, Blood 28 mmol/L (21-32); Calcium, Blood 8.5 mg/dL (8.5-10.1); Chloride, Blood 108 mmol/L (98-108); Creatinine, Blood 0.94 mg/dL (0.40-1.00); Globulin, Blood 4.3 g/dL (2.2-4.0); Glomerular Filtration Rate >60 (60-); Glucose, Blood 112 mg/dL (70-99); Potassium, Blood 3.6 mmol/L (3.5-5.5); Sodium, Blood 144 mmol/L (136-145); Total Protein, Blood 6.8 g/dL (6.4-8.2)
--- NOTE | 2018-12-09 07:30 | NUR ---
ASSUMED CARE OF PATIENT; SEE ASSESSMENT CHARTING FOR DETAILS. PATIENT A/O X3; C/O PAIN TO BILAT. SIDES (RIBS) AND ACROSS UPPER ABD.; STATES IT IS 10/10. MORNING MEDS DUE TO INCLUDE NEURONTIN; WILL GIVE THESE AND IF NO RELIES OF PAIN WILL GIVEN TYLENOL 650MG PO. UP TO BSC AND VOIDED MODERATE TO LARGE AMOUNT OF MED. EMELY URINE; NO STOOL. BACK TO BED WITH SUPERVISION; MANAGED WELL. LUNGS CLEAR; BIOX. STABLE ON ROOM AIR. MONITOR REMAINS NSR; PATIENT AFEBRILE AND BP GOOD. FASTING BLOOD SUGAR THIS AM 102. [facility] NOT [facility]DERS FOR SLIDING SCALE AND CBG CHECKS.
--- NOTE | 2018-12-09 10:30 | NUR ---
DR. METZ HERE; ORDERED REPEAT BLOOD CULTURES D/T PREVIOUS CULTURES SHOWING LYSTERIA (REPORTED TO [facility]PT. BY MIGUELANGEL KEYS).
--- NOTE | 2018-12-09 13:10 | NUR ---
REPORT CALLED TO ISABELLA PURDY RN; PATIENT TO TRANSFER TO PCU 11. HAS BEEN PCU STATUS ALREADY BUT NO ROOMS WERE AVAILABLE.
--- NOTE | 2018-12-09 13:30 | NUR ---
TRANSFERRED TO PCU, ROOM 11, VIA W/C. PATIENTS' MOTHER AND RN ESCORTED PATIENT. MEDS, CHART AND BELONGINGS WITH PATIENT (TO INCLUDE HOME CPAP MACHINE).
--- NOTE | 2018-12-09 13:30 | NUR ---
PT ARRIVED TO PCU 11 FROM ICU, REPORT WAS OBTAINED FROM TIA BRAVO. PT IN BED WITH A VISTOR IN ROOM. SHE STATES HER RIBS HURT, IS TO EARLY FOR TYLENOL. BROUGHT HER WATER, CALL LIGHT IN REACH.
--- NOTE | 2018-12-10 02:36 | NUR ---
1940: ASSUMED CARE OF PATIENT. PT DENIES PAIN AT THIS TIME. CALL BORJA WITHIN REACH
--- NOTE | 2018-12-10 08:00 | NUR ---
pt laying in bed, awake a/ox3, has a flat affect, states she doesn't feel great, but is much improved from when she came in, denies complaints at this time, encouraged her to start mobilizing today, is agreeable, vs stable, she is 93% on r/a, left 02 off. running sr per tele, power glide to [facility], site is clear and patent, draws well, call light in reach.
[2018-12-10 09:32] LABS: Gentamicin, Trough 2.4 ug/mL (0.0-1.9)
[2018-12-10 15:59] LABS: Gentamicin, Random 0.8 ug/Ml
[2018-12-11 04:45] LABS: BASOPHILS ABSOLUTE AUTO 0.03 K/mm3 (0.00-0.23); BASOPHILS PERCENT AUTO 0 % (0-2); EOSINOPHILS ABSOLUTE AUTO 0.11 K/mm3 (0.00-0.68); EOSINOPHILS PERCENT AUTO 2 % (0-6); Hematocrit 41.3 % (33.0-51.0); IMMATURE GRAN ABSOLUTE AUTO 0.02 K/mm3 (0.00-0.10); IMMATURE GRAN PERCENT AUTO 0 % (0-1); LYMPHOCYTES ABSOLUTE AUTO 1.93 K/mm3 (0.84-5.20); LYMPHOCYTES PERCENT AUTO 26 % (21-46); MONOCYTES ABSOLUTE AUTO 0.74 K/mm3 (0.16-1.47); MONOCYTES PERCENT AUTO 10 % (4-13); Mean Corpuscular HGB 27.8 pg (26.0-34.0); Mean Corpuscular HGB Conc 31.5 g/dL (31.5-36.5); Mean Corpuscular Volume 88 fL (80-100); Mean Platelet Volume 10.7 fL (9.1-12.4); NEUTROPHILS ABSOLUTE AUTO 4.48 K/mm3 (1.96-9.15); NEUTROPHILS PERCENT AUTO 61 % (41-73); Platelet Count 223 K/mm3 (150-400); RDW Coefficient Variation 15.6 % (11.7-14.2); RDW Standard Deviation 49.9 fL (35.1-46.3); Red Blood Cell Count 4.67 M/mm3 (3.80-5.20); White Blood Cell Count 7.31 K/mm3 (4.00-11.30)
[2018-12-11 05:04] LABS: Alanine Aminotransfer (ALT/SGP 86 U/L (12-78); Albumin, Blood 2.7 g/dL (3.4-5.0); Albumin/Globulin Ratio 0.6 (0.8-1.8); Alk Phos 88 U/L (50-136); Anion Gap 6 mmol/L (6-16); Aspartate Aminotrans (AST/SGOT 50 U/L (12-37); Bilirubin, Total 0.2 mg/dL (0.1-1.0); Blood Urea Nitrogen 10 mg/dL (8-24); Bun/Creatinine Ratio 10.9 (12.0-20.0); CO2, Blood 32 mmol/L (21-32); Chloride, Blood 103 mmol/L (98-108); Creatinine, Blood 0.92 mg/dL (0.40-1.00); Globulin, Blood 4.3 g/dL (2.2-4.0); Glomerular Filtration Rate >60 (60-); Glucose, Blood 106 mg/dL (70-99); Magnesium, Blood 1.9 mg/dL (1.6-2.4); Potassium, Blood 3.1 mmol/L (3.5-5.5); Sodium, Blood 141 mmol/L (136-145)
--- NOTE | 2018-12-11 07:42 | NUR ---
PATIENT RESTED WELL, WAS HAPPY TO BE RECEIVING HER LYRICA FOR HER NERVE PAIN. DISCUSSED PATIENT FEELING AND CONCERNS. WASHED HER HAIR WITH SHOWER CAPS AND BRAIDED IT FOR HER. APPLIED LOTIION PER HER REQUEST. PT WAS OOB TO BSC SEVERAL TIMES THIS SHIFT. SHE REPORTS SHE HAS DIFFICULTY COMPREHENDING WRITTEN WORD. AND IS ANXIOUS OVER HER CONSULT WOTH INFECTIOS DISEASE TRIED TO ABBIE HER FEARS AND OFFER A BRIGHTER PERSPECTIVE. OVERALL PATIENT SEEMS IN GOOD SPIRITS THIS MORNING AND LOOKING FORWARD TO SEEING A FRIEND WHO MAY COME TO VISIT.
--- NOTE | 2018-12-11 08:20 | NUR ---
AM NOTE. ASSUMED CARE OF PT APROX 0700, PT IS A&Ox4 AND SBA IN THE ROOM. PT IS UP IN THE CHAIR THIS MORNING. PT'S WEAKNESS GREATLY IMPROVED. PT'S VS STABLE AT THIS TIME. NO EDEMA IS NOTED ON ASSESSMENT, L/S CLEAR T/O PT IS ON RA WITH SATS >90%. BT PRESENT AND NORMOACTIVE, ABD IS SOFT AND NONTENDER TO PALP. PT IS WAITING FOR CONSULT WITH INFECTION CONTROL PROVIDER. CALL LIGHT IN REACH, WILL CONTINUE TO MONITOR.
--- NOTE | 2018-12-11 17:51 | NUR ---
SHIFT SUMMARY. NO ACUTE CHANGES NOTED THIS SHIFT. PT HAS BEEN CHANGED TO MED STATUS WITH NO TELE. PT'S VS STABLE T/O SHIFT. PT HAS BEEN UP IN THE CHAIR MOST OF THE SHIFT, PT HAD SHOWER TODAY AND HAS BEEN WALKING INTO THE BATHROOM TO VOID. CALL LIGHT IN REACH, BED IS LOCKED AND LOW WILL CONTINUE TO MONITOR UNTIL REPORT IS GIVEN TO ONCOMING RN.
[2018-12-12 04:35] LABS: Albumin, Blood 2.8 g/dL (3.4-5.0); Anion Gap 6 mmol/L (6-16); Blood Urea Nitrogen 13 mg/dL (8-24); Bun/Creatinine Ratio 14.2 (12.0-20.0); CO2, Blood 33 mmol/L (21-32); Calcium, Blood 9.2 mg/dL (8.5-10.1); Chloride, Blood 102 mmol/L (98-108); Creatinine, Blood 0.92 mg/dL (0.40-1.00); Gentamicin, Trough 1.4 ug/mL (0.0-1.9); Glomerular Filtration Rate >60 (60-); Glucose, Blood 102 mg/dL (70-99); Phosphorus, Blood 3.2 mg/dL (2.5-4.9); Potassium, Blood 3.3 mmol/L (3.5-5.5); Sodium, Blood 141 mmol/L (136-145)
--- NOTE | 2018-12-12 04:36 | NUR ---
Shift Summary No acute changes this shift. Pt remains alert and oriented, VSS, tele discontinued per orders, no complaints of chest pain, pressure, or discomfort. Pt denies SOB or BUSTOS. Pt breathing easy and unlabored on 2L NC. No changes from initial shift assessment. Pt is SBA to BSC. Calls appropriately, able to make needs known, able to reposition self in bed to comfort. Pt has displayed depression, anxiety, and fear to this RN this shift. Pt both verbalized depression, anxiety, and fear as well as displayed emotions throughout shift as she has been very tearful this shift. Pt is in no apparent sign of distress, denies any new onset symptoms. Will continue to monitor and assess and provide care until day RN assumes care.
--- NOTE | 2018-12-12 08:28 | NUR ---
AM NOTE. ASSUMED CARE OF PT APROX 0700. PT IS A&Ox4 AND SBA IN THE ROOM. PT IS UP IN CHAIR FOR BREAKFAST. PT'S VS STABLE AT THIS TIME. PT IS WAITING TO SEE INFECTIOUS DISEASE PROVIDER BEFORE D/C HOME. PT IS VERY ANXIOUS AND WORRIES ABOUT HER CONDITION, PT HAS BEEN VERY EMOTIONAL THIS AM, THERAPUTIC COMMUNICATION/TOUCH PROVIDED. CALL LIGHT IN REACH, BED IS LOCKED AND LOW WILL CONTINUE TO MONITOR.
--- NOTE | 2018-12-12 09:15 | NUR ---
PT ARRIVED TO ROOM 303 FROM U VIA W/C, PT IS A/O AND INDPENDENT IN ROOM. ORIENTED TO ROOM AND CALL SYSTEM. WILL CONTINUE TO MONITOR.
[2018-12-12 14:00] LABS: Gentamicin, Random 1.6 ug/Ml
--- NOTE | 2018-12-12 18:53 | NUR ---
NO ACUTE CHANGES SINCE ARRIVAL TO ROOM, DR GREENE AT BEDSIDE THIS AFTERNOON, WILL CONTINE TO MONITOR AND REPORT TO ONCOMING RN
[2018-12-13 05:16] LABS: Gentamicin, Random <0.2 ug/Ml
--- NOTE | 2018-12-13 05:59 | NUR ---
SUMMARY: A/0X4, INDEPENDENT AND CALLS OFTEN FOR NON-ACUTE NEEDS. PT APPEARS TO BE ANXIOUS DESPITE HAVING A FLAT AFFECT AND REQ'S FREQUENT REMINDERS PERTAINING TO SAME Q'S. TYLENOL PROVIDED X2 DOSES FOR TOLERABLE CONTROL OF LOWER BACK PAIN AND REPORTS ADDITIONAL IMPROVEMENT SINCE TRANSFERRING TO RECLINER. SHE WAS FIXATED ON PAIN POSSIBLY BEING RELATED TO KIDNEYS DESPIT KIDNEY FUNCTION WNL AND HAVING DRANK COPIOUS AMTS OF ORAL FLUIDS AND GOOD UO. IV ABX WERE RECIEVED AND POWERGLIDE TO TIN REMAINS C/D/I. PT IS POSSIBLE D/C TODAY W/EMS COORDINATOR ABX (APPROX 2 WKS) PLANNED OUPATIENT. NO ACUTE CHANGES, VSS/AFEBRILE. WCTM AND REPORT TO DAY RN.
--- NOTE | 2018-12-13 18:15 | NUR ---
SHIFT SUMMARY. A&OX3, SOME MEMORY DEFICITS AT TIMES. INDEPENDENT IN ROOM. PT DENIES SOB, N/V. PT C/O BACK PAIN, MANAGED WELL WITH CURRENT ORDERS. AWAITING HOME IV INFUSION AND HH TO BE SET UP PRIOR TO D/C. DRESSING CHANGED TO PGG TO TIN. PT SHOWERED TODAY. NO NEW CHANGES.
--- NOTE | 2018-12-14 02:14 | NUR ---
PT DEMONSTRATION THIS RN WALKED THE PATIENT THROUGH THE STEPS OF USING PG TO ADMINISTER OWN ABX. PT DEMONSRATED BACK TO THIS RN FLUSHING THE PG WITH 20 ML NS, AND HOOKING UP THE ABX. SHE DEMONSTRATES COMPETENCY IN THIS, AND VOICES CONFIDENCE IN BEING ABLE TO PERFORM THESE TASKS INDEPENDENTLY AT HOME.
[2018-12-14 03:08] LABS: HIV SCREEN 4TH GENERATION WRFX Non Reactive (Non Reactive)
[2018-12-14 05:19] LABS: Gentamicin, Random <0.2 ug/Ml
--- NOTE | 2018-12-14 06:03 | NUR ---
SHIFT SUMMARY EDUCATED PT ON USE OF POWERGLIDE FOR ABX INFUSION. USING TEACH BACK METHOD, PT WAS ABLE TO DEMONSTRATE HOW TO FLUSH POWERGLIDE AND EXECUTIVE STAFF ASSISTANT ABX LINE. ATTACHED PROCUREMENT CONSULTANT TO POWERGLIDE SO PT IS ABLE TO REACH IT WITH BOTH HANDS. RN ADMINISTERD ABX. PT STATES CONFIDENCE IN BEING ABLE TO PERFORM TASK AT HOME. PT TAKES SEVERAL WALKS IN THE UP TONIGHT. IN RECLINER OTHER TIMES, REPORTS BED IS NOT COMFORTABLE AND HURTS HER BACK. TREATED FOR BACK PAIN ONCE WITH PRN TYLENOL. ON 2L VIA NC AT NIGHT, CONT PULSE OX IN PLACE DURING THIS TIME. O2 SATS REMAIN WNL. GENTAMICIN TROUGH WNL WITH THIS AM LABS. NO OTHER CHANGES TO REPORT. WILL CONT TO MONITOR AND PROVIDE CARE UNTIL PRESUMED BY ONCOMING RN.
[2018-12-14] MEDS ORDERED: MEROPENEM1 GM IV (14:54)
--- NOTE | 2018-12-14 16:26 | NUR ---
Emilia was tearful and spoke at length about the loss of her brother to cancer 1 year ago. His caused a family split that brings sorrow as well. Emilia responded well to gentle bereavement queen's counsel and emotional affirmation. she feels well-suppoted by [employer] and friends. She admits she is tired of being sick. She is being discharged this afternoon. We prayer together to good effect.
--- NOTE | 2018-12-14 17:00 | NUR ---
PATIENT D/C'D HOME WITH CAREGIVER. POWERGLIDE LEFT IN FOR IV ABX AT HOME. HOME HEALTH SET UP WITH [facility] AND THEY WILL BE BY IN THE AM TO SEE PATIENT. PATIENT EDUCATD AND DEMONSTRATED STERILE TECHNIQUE 5 TIMES DURING STAY. RX MEDICATIONS FAXED TO [facility]. D/C INSTRUCTIONS AND EDUCATIONS DISCUSSED WITH PATIENT AND COPY PROVIDED. PATIENT DENIES ANY QUESTIONS OR CONCERNS AT THIS TIME.
[2018-12-15 11:07] LABS: HEPATITIS C QUANTITATION HCV Not Detected IU/mL (.)
== END 2018-12-14 17:17 | disposition home health service (06) | DRG 871 ==
LOC: ER 19:06 → ICUW 21:33 → MEDS 21:33 → PCU 21:33 → ICUE 23:30 → ICUW 12-08 16:59 → PCU 12-09 13:44 → MEDS 12-12 09:12 → ENPENDDIS 12-14 11:15 → EDPENDDISDT 12-14 11:15 → EDPENDDISTM 12-14 11:15 → MEDS 12-14 17:17
PROVIDERS: Emergency Medicine; Internal Medicine; Internal Medicine Infectious Disease; Pharmacist; ADMIT Internal Medicine
DX: A41.89 Other specified sepsis (principal); G92 Toxic encephalopathy; N39.0 Urinary tract infection, site not specified; Z68.44 Body mass index [BMI] 60.0-69.9, adult; A32.7 Listerial sepsis; F25.9 Schizoaffective disorder, unspecified; E66.9 Obesity, unspecified; G47.33 Obstructive sleep apnea (adult) (pediatric); E07.81 Sick-euthyroid syndrome; E11.42 Type 2 diabetes mellitus with diabetic polyneuropathy; R65.20 Severe sepsis without septic shock; J45.909 Unspecified asthma, uncomplicated; E87.6 Hypokalemia; R74.0 Nonspecific elevation of levels of transaminase and lactic acid dehydrogenase [LDH]; I25.2 Old myocardial infarction; Z88.1 Allergy status to other antibiotic agents; Z88.0 Allergy status to penicillin; Z88.2 Allergy status to sulfonamides; Z88.8 Allergy status to other drugs, medicaments and biological substances; Z91.018 Allergy to other foods; Z79.82 Long term (current) use of aspirin; Z79.52 Long term (current) use of systemic steroids; Z79.899 Other long term (current) drug therapy
CPT/HCPCS: 36415; 51702; 70450; 71045; 80047; 80053; 80069; 80170; 81001; 82550; 82553; 82947; 83036; 83605; 83735; 83880; 84100; 84439; 84443; 84481; 84484; 85014; 85025; 85027; 87040; 87077; 87086; 87186; 87389; 87522; 93005; 93010; 94762; 96365; 96366; 96372; 96375; 97116; 97161; 97165; 97530; 97535; 99283-25; 99285-25; A9270; C1751; C9113; G0480; J0696; J1170; J1580; J1650; J2060; J2185; J2405; J3370; J3480; J7030; J7040; J7050; J7060; P9612

== ENCOUNTER 2018-12-15 18:51 | Emergency (ER) | payer OTHER ==
[~2018-12-15] VITALS: Ht 162.6 cm; Wt 163.3 kg
[~2018-12-15 18:51] MED LIST changes: +ARIP30 PO; +ASCO500 PO; +Aspirin EC81 MG PO; +Buspirone HCl15 MG PO; +CELE100 PO; +CYCL10 PO; +DULO60 PO; +Dyazide 37.5-21 EACH PO; +FAMO20 PO; +LAMO100 PO; +Lopressor 25 mg25 MG PO; +MEROPENEM1 GM IV; +MONT10T PO; +ONDA4 PO; +PRAZ1 PO; +PRENATAL TABLE1 EAC2 PO; +PYRI100 PO; +Pravachol40 MG PO; +Protonix40 MG PO; +SITA100T2 PO; +Sucralfate1 GM PO; +TOPI50 PO; +TRULICITY1.5 MG/0.5 SC; +ZALE10 PO
== END 2018-12-15 21:39 | disposition home or self-care (01) ==
LOC: ER 18:51
DX: Z46.82 Encounter for fitting and adjustment of non-vascular catheter (principal); J45.909 Unspecified asthma, uncomplicated; I25.2 Old myocardial infarction; E11.9 Type 2 diabetes mellitus without complications; Z79.82 Long term (current) use of aspirin; Z79.899 Other long term (current) drug therapy
CPT/HCPCS: 36569; 87086; 99282; C1751

== ENCOUNTER 2018-12-17 10:38 | Emergency (ER) | payer OTHER ==
[~2018-12-17] VITALS: Ht 157.5 cm; Wt 160.6 kg
== END 2018-12-17 13:36 | disposition home or self-care (01) ==
LOC: ER 10:38
DX: Z45.2 Encounter for adjustment and management of vascular access device (principal); E11.9 Type 2 diabetes mellitus without complications; I25.2 Old myocardial infarction; Z87.891 Personal history of nicotine dependence; Z88.0 Allergy status to penicillin; Z88.8 Allergy status to other drugs, medicaments and biological substances; Z88.1 Allergy status to other antibiotic agents; Z88.2 Allergy status to sulfonamides; Z88.6 Allergy status to analgesic agent; Z91.018 Allergy to other foods; Z91.048 Other nonmedicinal substance allergy status; Z79.899 Other long term (current) drug therapy; Z79.82 Long term (current) use of aspirin
CPT/HCPCS: 36569; 36589; 71045; 96365-59; 99283-25; C1751; J2185

== ENCOUNTER 2018-12-20 22:25 | Emergency (ER) | payer OTHER ==
[~2018-12-20] VITALS: Ht 162.6 cm; Wt 159.7 kg
[2018-12-20 23:21] LABS: BASOPHILS ABSOLUTE AUTO 0.06 K/mm3 (0.00-0.23); BASOPHILS PERCENT AUTO 1 % (0-2); EOSINOPHILS ABSOLUTE AUTO 0.29 K/mm3 (0.00-0.68); EOSINOPHILS PERCENT AUTO 3 % (0-6); Hematocrit 41.9 % (33.0-51.0); Hemoglobin 13.2 g/dL (11.5-16.0); IMMATURE GRAN ABSOLUTE AUTO 0.04 K/mm3 (0.00-0.10); IMMATURE GRAN PERCENT AUTO 0 % (0-1); LYMPHOCYTES ABSOLUTE AUTO 3.01 K/mm3 (0.84-5.20); LYMPHOCYTES PERCENT AUTO 27 % (21-46); MONOCYTES PERCENT AUTO 9 % (4-13); Mean Corpuscular HGB 28.2 pg (26.0-34.0); Mean Corpuscular HGB Conc 31.5 g/dL (31.5-36.5); Mean Corpuscular Volume 90 fL (80-100); NEUTROPHILS ABSOLUTE AUTO 6.79 K/mm3 (1.96-9.15); NEUTROPHILS PERCENT AUTO 61 % (41-73); RDW Coefficient Variation 15.4 % (11.7-14.2); RDW Standard Deviation 49.9 fL (35.1-46.3); Red Blood Cell Count 4.68 M/mm3 (3.80-5.20); White Blood Cell Count 11.19 K/mm3 (4.00-11.30)
[2018-12-20 23:32] LABS: Mean Platelet Volume 11.1 fL (9.1-12.4); Platelet Count 243 K/mm3 (150-400)
[2018-12-20 23:35] LABS: Alanine Aminotransfer (ALT/SGP 68 U/L (12-78); Albumin, Blood 2.8 g/dL (3.4-5.0); Albumin/Globulin Ratio 0.6 (0.8-1.8); Alk Phos 103 U/L (50-136); Anion Gap 4 mmol/L (6-16); Aspartate Aminotrans (AST/SGOT 45 U/L (12-37); Bilirubin, Total 0.3 mg/dL (0.1-1.0); Blood Urea Nitrogen 20 mg/dL (8-24); Bun/Creatinine Ratio 23.3 (12.0-20.0); CO2, Blood 32 mmol/L (21-32); Calcium, Blood 8.6 mg/dL (8.5-10.1); Chloride, Blood 104 mmol/L (98-108); Creatinine, Blood 0.86 mg/dL (0.40-1.00); Globulin, Blood 4.4 g/dL (2.2-4.0); Glomerular Filtration Rate >60 (60-); Glucose, Blood 124 mg/dL (70-99); Potassium, Blood 3.4 mmol/L (3.5-5.5); Sodium, Blood 140 mmol/L (136-145); Total Protein, Blood 7.2 g/dL (6.4-8.2)
== END 2018-12-21 02:18 | disposition home or self-care (01) ==
LOC: ER 22:25
PROVIDERS: Emergency Medicine
DX: R07.9 Chest pain, unspecified (principal); Z88.0 Allergy status to penicillin; Z88.8 Allergy status to other drugs, medicaments and biological substances; Z88.1 Allergy status to other antibiotic agents; Z88.6 Allergy status to analgesic agent; Z88.7 Allergy status to serum and vaccine; Z91.018 Allergy to other foods; F25.9 Schizoaffective disorder, unspecified; Z88.2 Allergy status to sulfonamides; Z79.899 Other long term (current) drug therapy; Z79.82 Long term (current) use of aspirin; E11.9 Type 2 diabetes mellitus without complications; J45.909 Unspecified asthma, uncomplicated; I25.2 Old myocardial infarction; Z87.891 Personal history of nicotine dependence
CPT/HCPCS: 71260; 80053; 84484; 85025; 93005; 93010; 99284-25; Q9967

== ENCOUNTER 2018-12-30 22:47 | Emergency (ER) | payer OTHER ==
[~2018-12-30] VITALS: Ht 162.6 cm; Wt 155.1 kg
[2018-12-30 23:52] LABS: Source, Urine Clean Catch
[2018-12-30 23:54] LABS: Bilirubin, Urine Neg (Neg); Blood, Urine 5+ (Neg); Glucose Qualitative, Urine Neg (Neg); Ketones, Urine Neg (Neg); Leukocyte Esterase, Urine 1+ (Neg); Nitrite, Urine Neg (Neg); Protein, Urine 2+ (Neg); Urobilinogen, Urine NORM (Normal)
[2018-12-31 00:01] LABS: Appearance, Urine Hazy (Clear); Color, Urine Amber (P-Yellow)
[2018-12-31 00:03] LABS: Bacteria Few /hpf; Red Blood Cells, Urine TNTC /hpf (0-2); Squamous Epithelial Cells Not Seen /hpf (Few)
[2018-12-31 00:08] LABS: BASOPHILS ABSOLUTE AUTO 0.05 K/mm3 (0.00-0.23); BASOPHILS PERCENT AUTO 0 % (0-2); EOSINOPHILS ABSOLUTE AUTO 0.01 K/mm3 (0.00-0.68); EOSINOPHILS PERCENT AUTO 0 % (0-6); Hematocrit 44.1 % (33.0-51.0); Hemoglobin 13.9 g/dL (11.5-16.0); IMMATURE GRAN PERCENT AUTO 1 % (0-1); LYMPHOCYTES ABSOLUTE AUTO 3.59 K/mm3 (0.84-5.20); LYMPHOCYTES PERCENT AUTO 23 % (21-46); MONOCYTES ABSOLUTE AUTO 0.94 K/mm3 (0.16-1.47); MONOCYTES PERCENT AUTO 6 % (4-13); Mean Corpuscular HGB 27.5 pg (26.0-34.0); Mean Corpuscular HGB Conc 31.5 g/dL (31.5-36.5); Mean Platelet Volume 10.2 fL (9.1-12.4); NEUTROPHILS ABSOLUTE AUTO 11.11 K/mm3 (1.96-9.15); NEUTROPHILS PERCENT AUTO 70 % (41-73); Platelet Count 320 K/mm3 (150-400); RDW Coefficient Variation 15.5 % (11.7-14.2); RDW Standard Deviation 48.5 fL (35.1-46.3); Red Blood Cell Count 5.05 M/mm3 (3.80-5.20)
[2018-12-31 00:14] LABS: Mean Corpuscular Volume 87 fL (80-100)
[2018-12-31 00:29] LABS: Alanine Aminotransfer (ALT/SGP 71 U/L (12-78); Albumin, Blood 3.1 g/dL (3.4-5.0); Albumin/Globulin Ratio 0.6 (0.8-1.8); Alk Phos 105 U/L (50-136); Anion Gap 6 mmol/L (6-16); Aspartate Aminotrans (AST/SGOT 33 U/L (12-37); Bilirubin, Total 0.2 mg/dL (0.1-1.0); Blood Urea Nitrogen 27 mg/dL (8-24); CO2, Blood 30 mmol/L (21-32); Calcium, Blood 9.3 mg/dL (8.5-10.1); Chloride, Blood 105 mmol/L (98-108); Creatinine, Blood 0.87 mg/dL (0.40-1.00); Glomerular Filtration Rate >60 (60-); Glucose, Blood 132 mg/dL (70-99); Potassium, Blood 3.4 mmol/L (3.5-5.5); Sodium, Blood 141 mmol/L (136-145); Total Protein, Blood 8.1 g/dL (6.4-8.2)
[2018-12-31] MEDS ORDERED: CIPR500 PO (00:51)
== END 2018-12-31 01:36 | disposition home or self-care (01) ==
LOC: ER 22:47
PROVIDERS: Emergency Medicine
DX: N30.91 Cystitis, unspecified with hematuria (principal); E11.9 Type 2 diabetes mellitus without complications; J45.909 Unspecified asthma, uncomplicated; I25.2 Old myocardial infarction; Z88.0 Allergy status to penicillin; Z88.1 Allergy status to other antibiotic agents; Z88.8 Allergy status to other drugs, medicaments and biological substances; Z91.018 Allergy to other foods; Z79.82 Long term (current) use of aspirin; Z79.899 Other long term (current) drug therapy; Z79.2 Long term (current) use of antibiotics
CPT/HCPCS: 80053; 81001; 83690; 85025; 87086; 99284

== ENCOUNTER 2019-01-02 22:53 | Emergency (ER) | payer OTHER ==
[~2019-01-02] VITALS: Ht 162.6 cm; Wt 154.2 kg
[~2019-01-02 22:53] MED LIST changes: +CIPR500 PO
[2019-01-02 23:35] LABS: BASOPHILS ABSOLUTE AUTO 0.05 K/mm3 (0.00-0.23); BASOPHILS PERCENT AUTO 0 % (0-2); EOSINOPHILS PERCENT AUTO 1 % (0-6); Hematocrit 43.2 % (33.0-51.0); Hemoglobin 13.7 g/dL (11.5-16.0); IMMATURE GRAN ABSOLUTE AUTO 0.09 K/mm3 (0.00-0.10); IMMATURE GRAN PERCENT AUTO 1 % (0-1); LYMPHOCYTES ABSOLUTE AUTO 4.52 K/mm3 (0.84-5.20); LYMPHOCYTES PERCENT AUTO 28 % (21-46); MONOCYTES ABSOLUTE AUTO 1.15 K/mm3 (0.16-1.47); MONOCYTES PERCENT AUTO 7 % (4-13); Mean Corpuscular HGB 27.8 pg (26.0-34.0); Mean Corpuscular HGB Conc 31.7 g/dL (31.5-36.5); Mean Corpuscular Volume 88 fL (80-100); Mean Platelet Volume 10.3 fL (9.1-12.4); NEUTROPHILS ABSOLUTE AUTO 10.34 K/mm3 (1.96-9.15); NEUTROPHILS PERCENT AUTO 64 % (41-73); Platelet Count 291 K/mm3 (150-400); RDW Coefficient Variation 14.9 % (11.7-14.2); RDW Standard Deviation 47.9 fL (35.1-46.3); Red Blood Cell Count 4.92 M/mm3 (3.80-5.20); White Blood Cell Count 16.25 K/mm3 (4.00-11.30)
[2019-01-02 23:54] LABS: Alanine Aminotransfer (ALT/SGP 82 U/L (12-78); Albumin, Blood 2.9 g/dL (3.4-5.0); Albumin/Globulin Ratio 0.6 (0.8-1.8); Alk Phos 97 U/L (50-136); Anion Gap 8 mmol/L (6-16); Aspartate Aminotrans (AST/SGOT 31 U/L (12-37); Bilirubin, Total 0.3 mg/dL (0.1-1.0); Blood Urea Nitrogen 31 mg/dL (8-24); Bun/Creatinine Ratio 34.9 (12.0-20.0); CO2, Blood 30 mmol/L (21-32); Calcium, Blood 9.3 mg/dL (8.5-10.1); Chloride, Blood 105 mmol/L (98-108); Creatinine, Blood 0.89 mg/dL (0.40-1.00); Globulin, Blood 4.6 g/dL (2.2-4.0); Glomerular Filtration Rate >60 (60-); Glucose, Blood 135 mg/dL (70-99); Potassium, Blood 2.9 mmol/L (3.5-5.5); Sodium, Blood 143 mmol/L (136-145); Total Protein, Blood 7.5 g/dL (6.4-8.2)
[2019-01-03 00:28] LABS: Source, Urine Clean Catch
[2019-01-03 00:33] LABS: Bilirubin, Urine Neg (Neg); Blood, Urine Neg (Neg); Glucose Qualitative, Urine Neg (Neg); Ketones, Urine Neg (Neg); Leukocyte Esterase, Urine Neg (Neg); Nitrite, Urine Neg (Neg); Protein, Urine 1+ (Neg); Specific Gravity, Urine 1.025 (1.003-1.022); Urobilinogen, Urine NORM (Normal)
[2019-01-03 00:42] LABS: Appearance, Urine Clear (Clear); Color, Urine Yellow (P-Yellow)
== END 2019-01-03 02:02 | disposition home or self-care (01) ==
LOC: ER 22:53
PROVIDERS: Emergency Medicine
DX: R10.84 Generalized abdominal pain (principal); E87.6 Hypokalemia; J45.909 Unspecified asthma, uncomplicated; E11.9 Type 2 diabetes mellitus without complications; I25.2 Old myocardial infarction; F20.9 Schizophrenia, unspecified; Z88.0 Allergy status to penicillin; Z88.1 Allergy status to other antibiotic agents; Z88.8 Allergy status to other drugs, medicaments and biological substances; Z91.018 Allergy to other foods; Z88.2 Allergy status to sulfonamides; Z91.010 Allergy to peanuts; Z79.899 Other long term (current) drug therapy; Z79.82 Long term (current) use of aspirin
CPT/HCPCS: 80053; 83690; 85025; 99284; P9612

== ENCOUNTER 2019-01-07 21:56 | Emergency (ER) | payer OTHER ==
[~2019-01-07] VITALS: Ht 162.6 cm; Wt 160.1 kg
[2019-01-07 23:45] LABS: BASOPHILS ABSOLUTE AUTO 0.06 K/mm3 (0.00-0.23); BASOPHILS PERCENT AUTO 1 % (0-2); EOSINOPHILS ABSOLUTE AUTO 0.21 K/mm3 (0.00-0.68); EOSINOPHILS PERCENT AUTO 2 % (0-6); Hematocrit 39.8 % (33.0-51.0); Hemoglobin 12.8 g/dL (11.5-16.0); IMMATURE GRAN ABSOLUTE AUTO 0.07 K/mm3 (0.00-0.10); IMMATURE GRAN PERCENT AUTO 1 % (0-1); LYMPHOCYTES ABSOLUTE AUTO 2.52 K/mm3 (0.84-5.20); LYMPHOCYTES PERCENT AUTO 22 % (21-46); MONOCYTES ABSOLUTE AUTO 1.05 K/mm3 (0.16-1.47); MONOCYTES PERCENT AUTO 9 % (4-13); Mean Corpuscular HGB 28.8 pg (26.0-34.0); Mean Corpuscular HGB Conc 32.2 g/dL (31.5-36.5); Mean Corpuscular Volume 89 fL (80-100); Mean Platelet Volume 10.9 fL (9.1-12.4); NEUTROPHILS PERCENT AUTO 66 % (41-73); Platelet Count 205 K/mm3 (150-400); RDW Coefficient Variation 14.8 % (11.7-14.2); RDW Standard Deviation 49.1 fL (35.1-46.3); Red Blood Cell Count 4.45 M/mm3 (3.80-5.20); White Blood Cell Count 11.51 K/mm3 (4.00-11.30)
[2019-01-08 00:03] LABS: Alanine Aminotransfer (ALT/SGP 61 U/L (12-78); Albumin, Blood 2.7 g/dL (3.4-5.0); Albumin/Globulin Ratio 0.7 (0.8-1.8); Alk Phos 101 U/L (50-136); Anion Gap 6 mmol/L (6-16); Aspartate Aminotrans (AST/SGOT 28 U/L (12-37); Bilirubin, Total 0.2 mg/dL (0.1-1.0); Blood Urea Nitrogen 15 mg/dL (8-24); CO2, Blood 31 mmol/L (21-32); Calcium, Blood 8.5 mg/dL (8.5-10.1); Chloride, Blood 107 mmol/L (98-108); Creatinine, Blood 0.84 mg/dL (0.40-1.00); Glomerular Filtration Rate >60 (60-); Glucose, Blood 155 mg/dL (70-99); Potassium, Blood 2.9 mmol/L (3.5-5.5); Sodium, Blood 144 mmol/L (136-145); Total Protein, Blood 6.7 g/dL (6.4-8.2)
[2019-01-08] MEDS ORDERED: PROM25S PR (01:06)
== END 2019-01-08 02:27 | disposition home or self-care (01) ==
LOC: ER 21:56
PROVIDERS: Physician Assistant
DX: R10.84 Generalized abdominal pain (principal); E87.6 Hypokalemia; R50.9 Fever, unspecified; E11.9 Type 2 diabetes mellitus without complications; J45.909 Unspecified asthma, uncomplicated; F25.9 Schizoaffective disorder, unspecified; I25.2 Old myocardial infarction; Z87.891 Personal history of nicotine dependence; Z88.8 Allergy status to other drugs, medicaments and biological substances; Z88.0 Allergy status to penicillin; Z91.018 Allergy to other foods; Z88.1 Allergy status to other antibiotic agents; Z88.7 Allergy status to serum and vaccine; Z88.2 Allergy status to sulfonamides; Z79.899 Other long term (current) drug therapy; Z79.82 Long term (current) use of aspirin
CPT/HCPCS: 71046; 80053; 83690; 85025; 96361; 96374; 99284-25; J1630; J7030

== ENCOUNTER 2019-01-21 02:33 | Emergency (ER) | payer OTHER ==
[~2019-01-21] VITALS: Ht 162.6 cm; Wt 162.4 kg
[~2019-01-21 02:33] MED LIST changes: +PROM25S PR
[2019-01-21 03:01] LABS: PCO2 Arterial 40.1 mmHg (35-45); pH Blood Arterial 7.43 (7.35-7.45)
[2019-01-21 03:11] LABS: BASOPHILS ABSOLUTE AUTO 0.07 K/mm3 (0.00-0.23); BASOPHILS PERCENT AUTO 1 % (0-2); EOSINOPHILS ABSOLUTE AUTO 0.15 K/mm3 (0.00-0.68); EOSINOPHILS PERCENT AUTO 1 % (0-6); Hematocrit 42.8 % (33.0-51.0); Hemoglobin 13.1 g/dL (11.5-16.0); IMMATURE GRAN ABSOLUTE AUTO 0.04 K/mm3 (0.00-0.10); IMMATURE GRAN PERCENT AUTO 0 % (0-1); LYMPHOCYTES ABSOLUTE AUTO 3.71 K/mm3 (0.84-5.20); LYMPHOCYTES PERCENT AUTO 28 % (21-46); MONOCYTES ABSOLUTE AUTO 1.11 K/mm3 (0.16-1.47); MONOCYTES PERCENT AUTO 8 % (4-13); Mean Corpuscular HGB 27.3 pg (26.0-34.0); Mean Corpuscular HGB Conc 30.6 g/dL (31.5-36.5); Mean Corpuscular Volume 89 fL (80-100); Mean Platelet Volume 10.9 fL (9.1-12.4); NEUTROPHILS ABSOLUTE AUTO 8.14 K/mm3 (1.96-9.15); NEUTROPHILS PERCENT AUTO 62 % (41-73); Platelet Count 275 K/mm3 (150-400); RDW Standard Deviation 49.7 fL (35.1-46.3); Red Blood Cell Count 4.79 M/mm3 (3.80-5.20); White Blood Cell Count 13.22 K/mm3 (4.00-11.30)
[2019-01-21 03:28] LABS: Alanine Aminotransfer (ALT/SGP 46 U/L (12-78); Albumin/Globulin Ratio 0.7 (0.8-1.8); Alk Phos 94 U/L (50-136); Anion Gap 5 mmol/L (6-16); Aspartate Aminotrans (AST/SGOT 25 U/L (12-37); Bilirubin, Total 0.3 mg/dL (0.1-1.0); Blood Urea Nitrogen 17 mg/dL (8-24); Bun/Creatinine Ratio 18.7 (12.0-20.0); CO2, Blood 30 mmol/L (21-32); Calcium, Blood 8.9 mg/dL (8.5-10.1); Chloride, Blood 106 mmol/L (98-108); Creatinine, Blood 0.91 mg/dL (0.40-1.00); Globulin, Blood 4.3 g/dL (2.2-4.0); Glomerular Filtration Rate >60 (60-); Glucose, Blood 142 mg/dL (70-99); Potassium, Blood 3.1 mmol/L (3.5-5.5); Sodium, Blood 141 mmol/L (136-145); Total Protein, Blood 7.3 g/dL (6.4-8.2); Troponin I <0.015 ng/mL (0.000-0.040)
[2019-01-21] MEDS ORDERED: BENZ100A PO (04:06)
[2019-01-21] MEDS ORDERED: Prednisone20 MG PO (04:06)
[2019-01-21] MEDS ORDERED: ALBU90OI INH (04:06)
== END 2019-01-21 04:53 | disposition home or self-care (01) ==
LOC: ER 02:33
PROVIDERS: Emergency Medicine
DX: J45.901 Unspecified asthma with (acute) exacerbation (principal); Z88.0 Allergy status to penicillin; Z88.8 Allergy status to other drugs, medicaments and biological substances; Z91.018 Allergy to other foods; Z88.1 Allergy status to other antibiotic agents; Z88.6 Allergy status to analgesic agent; Z79.899 Other long term (current) drug therapy; Z79.82 Long term (current) use of aspirin; E11.40 Type 2 diabetes mellitus with diabetic neuropathy, unspecified; F25.9 Schizoaffective disorder, unspecified; I25.2 Old myocardial infarction; Z87.891 Personal history of nicotine dependence
CPT/HCPCS: 36600; 71045; 80053; 82803; 83605; 83880; 84484; 85025; 93005; 93010; 94640; 96365; 96375; 99285-25; J2930; J3475

== ENCOUNTER 2019-01-23 00:08 | Emergency (ER) | payer OTHER ==
[~2019-01-23] VITALS: Ht 162.6 cm; Wt 159.7 kg
[~2019-01-23 00:08] MED LIST changes: +ALBU90OI INH; +BENZ100A PO
== END 2019-01-23 01:27 | disposition home or self-care (01) ==
LOC: ER 00:08
DX: J45.901 Unspecified asthma with (acute) exacerbation (principal); J06.9 Acute upper respiratory infection, unspecified; Z88.0 Allergy status to penicillin; Z88.8 Allergy status to other drugs, medicaments and biological substances; Z88.1 Allergy status to other antibiotic agents; Z88.7 Allergy status to serum and vaccine; Z88.6 Allergy status to analgesic agent; Z91.018 Allergy to other foods; Z79.899 Other long term (current) drug therapy; Z79.82 Long term (current) use of aspirin; Z79.52 Long term (current) use of systemic steroids; E11.9 Type 2 diabetes mellitus without complications; F20.9 Schizophrenia, unspecified; Z87.891 Personal history of nicotine dependence
CPT/HCPCS: 36415; 71045; 94640; 99285-25

== ENCOUNTER 2019-01-30 23:49 | Emergency (ER) | payer OTHER ==
[~2019-01-30] VITALS: Ht 162.6 cm; Wt 162.4 kg
[2019-01-31 00:20] LABS: BASOPHILS ABSOLUTE AUTO 0.05 K/mm3 (0.00-0.23); BASOPHILS PERCENT AUTO 0 % (0-2); EOSINOPHILS PERCENT AUTO 1 % (0-6); Hematocrit 43.8 % (33.0-51.0); Hemoglobin 13.6 g/dL (11.5-16.0); IMMATURE GRAN ABSOLUTE AUTO 0.11 K/mm3 (0.00-0.10); IMMATURE GRAN PERCENT AUTO 1 % (0-1); LYMPHOCYTES PERCENT AUTO 19 % (21-46); MONOCYTES ABSOLUTE AUTO 0.98 K/mm3 (0.16-1.47); MONOCYTES PERCENT AUTO 6 % (4-13); Mean Corpuscular HGB 27.5 pg (26.0-34.0); Mean Corpuscular HGB Conc 31.1 g/dL (31.5-36.5); Mean Corpuscular Volume 89 fL (80-100); Mean Platelet Volume 11.2 fL (9.1-12.4); NEUTROPHILS ABSOLUTE AUTO 11.29 K/mm3 (1.96-9.15); NEUTROPHILS PERCENT AUTO 73 % (41-73); Platelet Count 231 K/mm3 (150-400); RDW Coefficient Variation 15.3 % (11.7-14.2); Red Blood Cell Count 4.94 M/mm3 (3.80-5.20); White Blood Cell Count 15.53 K/mm3 (4.00-11.30)
[2019-01-31 00:40] LABS: Alanine Aminotransfer (ALT/SGP 60 U/L (12-78); Albumin, Blood 2.8 g/dL (3.4-5.0); Albumin/Globulin Ratio 0.7 (0.8-1.8); Alk Phos 99 U/L (50-136); Anion Gap 6 mmol/L (6-16); Aspartate Aminotrans (AST/SGOT 32 U/L (12-37); Bilirubin, Total 0.2 mg/dL (0.1-1.0); Blood Urea Nitrogen 16 mg/dL (8-24); Bun/Creatinine Ratio 17.7 (12.0-20.0); CO2, Blood 27 mmol/L (21-32); Calcium, Blood 8.8 mg/dL (8.5-10.1); Chloride, Blood 108 mmol/L (98-108); Globulin, Blood 4.3 g/dL (2.2-4.0); Glomerular Filtration Rate >60 (60-); Glucose, Blood 161 mg/dL (70-99); Potassium, Blood 3.4 mmol/L (3.5-5.5); Sodium, Blood 141 mmol/L (136-145); Total Protein, Blood 7.1 g/dL (6.4-8.2); Troponin I <0.015 ng/mL (0.000-0.040)
== END 2019-01-31 01:15 | disposition home or self-care (01) ==
LOC: ER 23:49
PROVIDERS: Emergency Medicine
DX: R07.89 Other chest pain (principal); Z88.0 Allergy status to penicillin; Z88.8 Allergy status to other drugs, medicaments and biological substances; Z88.1 Allergy status to other antibiotic agents; Z88.6 Allergy status to analgesic agent; Z91.018 Allergy to other foods; Z79.899 Other long term (current) drug therapy; Z79.82 Long term (current) use of aspirin; E11.9 Type 2 diabetes mellitus without complications; I25.2 Old myocardial infarction; Z87.891 Personal history of nicotine dependence
CPT/HCPCS: 36415; 71046; 80053; 84484; 85025; 93005; 93010; 96374; 99285-25; J2405

== ENCOUNTER 2019-02-05 18:28 | Emergency (ER) | payer OTHER ==
[~2019-02-05] VITALS: Ht 162.6 cm; Wt 162.4 kg
[2019-02-05 19:33] LABS: Influenza A Negative (NEGATIVE); Influenza B Negative (NEGATIVE)
[2019-02-05] MEDS ORDERED: Diabetic Tussi118 ML PO (19:52)
[2019-02-05] MEDS ORDERED: BENZ100A PO (19:59)
== END 2019-02-05 20:02 | disposition home or self-care (01) ==
LOC: ER 18:28
PROVIDERS: Physician Assistant
DX: R07.81 Pleurodynia (principal); R05 Cough; F25.9 Schizoaffective disorder, unspecified; J45.909 Unspecified asthma, uncomplicated; I25.2 Old myocardial infarction; E11.40 Type 2 diabetes mellitus with diabetic neuropathy, unspecified; Z87.891 Personal history of nicotine dependence; Z91.02 Food additives allergy status; Z88.0 Allergy status to penicillin; Z88.1 Allergy status to other antibiotic agents; Z91.018 Allergy to other foods; Z88.8 Allergy status to other drugs, medicaments and biological substances; Z88.7 Allergy status to serum and vaccine; Z79.899 Other long term (current) drug therapy; Z79.82 Long term (current) use of aspirin
CPT/HCPCS: 71046; 87804; 94640; 99283-25; J7512

== ENCOUNTER 2019-04-01 02:19 | Observation (INO) | payer OTHER ==
[~2019-04-01] VITALS: Ht 162.6 cm; Wt 166.3 kg
[~2019-04-01 02:19] MED LIST changes: +Diabetic Tussi118 ML PO
[2019-04-01 02:46] LABS: BASOPHILS ABSOLUTE AUTO 0.05 K/mm3 (0.00-0.23); BASOPHILS PERCENT AUTO 0 % (0-2); EOSINOPHILS ABSOLUTE AUTO 0.17 K/mm3 (0.00-0.68); EOSINOPHILS PERCENT AUTO 2 % (0-6); Hematocrit 42.3 % (33.0-51.0); Hemoglobin 13.1 g/dL (11.5-16.0); IMMATURE GRAN ABSOLUTE AUTO 0.04 K/mm3 (0.00-0.10); IMMATURE GRAN PERCENT AUTO 0 % (0-1); LYMPHOCYTES ABSOLUTE AUTO 2.74 K/mm3 (0.84-5.20); LYMPHOCYTES PERCENT AUTO 24 % (21-46); MONOCYTES ABSOLUTE AUTO 0.97 K/mm3 (0.16-1.47); MONOCYTES PERCENT AUTO 9 % (4-13); Mean Corpuscular HGB 27.5 pg (26.0-34.0); Mean Corpuscular Volume 89 fL (80-100); Mean Platelet Volume 10.6 fL (9.1-12.4); NEUTROPHILS ABSOLUTE AUTO 7.25 K/mm3 (1.96-9.15); NEUTROPHILS PERCENT AUTO 65 % (41-73); Platelet Count 203 K/mm3 (150-400); RDW Coefficient Variation 16.8 % (11.7-14.2); RDW Standard Deviation 54.5 fL (35.1-46.3); Red Blood Cell Count 4.77 M/mm3 (3.80-5.20); White Blood Cell Count 11.22 K/mm3 (4.00-11.30)
[2019-04-01 03:05] LABS: Alanine Aminotransfer (ALT/SGP 54 U/L (12-78); Albumin, Blood 2.8 g/dL (3.4-5.0); Albumin/Globulin Ratio 0.7 (0.8-1.8); Alk Phos 90 U/L (50-136); Anion Gap 7 mmol/L (6-16); Aspartate Aminotrans (AST/SGOT 36 U/L (12-37); Bilirubin, Total 0.3 mg/dL (0.1-1.0); Blood Urea Nitrogen 20 mg/dL (8-24); Bun/Creatinine Ratio 27.4 (12.0-20.0); CO2, Blood 28 mmol/L (21-32); Calcium, Blood 9.5 mg/dL (8.5-10.1); Chloride, Blood 105 mmol/L (98-108); Creatinine, Blood 0.73 mg/dL (0.40-1.00); Globulin, Blood 4.3 g/dL (2.2-4.0); Glomerular Filtration Rate >60 (60-); Glucose, Blood 147 mg/dL (70-99); Potassium, Blood 3.4 mmol/L (3.5-5.5); Sodium, Blood 140 mmol/L (136-145); Total Protein, Blood 7.1 g/dL (6.4-8.2); Troponin I <0.015 ng/mL (0.000-0.040)
[2019-04-01] MEDS ORDERED: CLON.5 PO (08:10)
[2019-04-01] MEDS ORDERED: AZO CRANBERRY1 EAC1 PO (08:11)
[2019-04-01] MEDS ORDERED: MANNOSE50 GM PO (08:12)
[2019-04-01] MEDS ORDERED: FAMO20 PO (08:13)
[2019-04-01] MEDS ORDERED: Garlic Oil1000 MG PO (08:13)
[2019-04-01] MEDS ORDERED: COMBIVENT RESPIM4 GM INH (08:15)
[2019-04-01] MEDS ORDERED: Isosorbide Mono30 MG PO (08:16)
[2019-04-01] MEDS ORDERED: SITA100T2 PO (08:17)
[2019-04-01] MEDS ORDERED: ONDA4 PO (08:18)
[2019-04-01] MEDS ORDERED: POTA10T PO (08:19)
[2019-04-01] MEDS ORDERED: MUCUS ER600 M1 PO (08:20)
[2019-04-01] MEDS ORDERED: AZO URINARY PAI95 MG PO (08:22)
[2019-04-01] MEDS ORDERED: NITR100CA PO (08:23)
[2019-04-01 11:27] LABS: CPK Creatine Kinase 53 U/L (26-193); Troponin I <0.015 ng/mL (0.000-0.040)
--- NOTE | 2019-04-01 15:56 | NUR ---
Discharge Summary A/Ox4, pleasant and cooperative with care. Pt discharging to home, [employer] to transport through [facility]. Personal belongings sent home with patient, discharge paperwork reviewed with patient and educational material given. No new medications. Pt will be escorted via w/c by TRAVEL ACCOMMODATIONS RATER. Pt had no questions for me at this time.
== END 2019-04-01 16:05 | disposition home or self-care (01) ==
LOC: ER 02:19 → MEDS 02:20
PROVIDERS: Emergency Medicine; ADMIT Internal Medicine
DX: R07.9 Chest pain, unspecified (principal); E11.40 Type 2 diabetes mellitus with diabetic neuropathy, unspecified; E78.5 Hyperlipidemia, unspecified; I10 Essential (primary) hypertension; K21.9 Gastro-esophageal reflux disease without esophagitis; F25.9 Schizoaffective disorder, unspecified; J45.909 Unspecified asthma, uncomplicated; I25.2 Old myocardial infarction; E87.6 Hypokalemia; F32.9 Major depressive disorder, single episode, unspecified; H54.40 Blindness, one eye, unspecified eye; E66.01 Morbid (severe) obesity due to excess calories; Z68.44 Body mass index [BMI] 60.0-69.9, adult; Z79.82 Long term (current) use of aspirin; Z79.51 Long term (current) use of inhaled steroids; Z79.899 Other long term (current) drug therapy; Z88.0 Allergy status to penicillin; Z88.1 Allergy status to other antibiotic agents; Z88.2 Allergy status to sulfonamides; Z88.8 Allergy status to other drugs, medicaments and biological substances; Z88.6 Allergy status to analgesic agent; Z91.018 Allergy to other foods; Z87.891 Personal history of nicotine dependence
CPT/HCPCS: 36415; 71045; 80053; 82550; 82947; 83690; 83880; 84484; 85025; 93005; 93010; 93971; 96372; 96374; 96375; 96376; 99285-25; C9113; G0378; J1650; J2405; J3010; J7030

== ENCOUNTER 2019-04-13 02:11 | Emergency (ER) | payer OTHER ==
[~2019-04-13] VITALS: Ht 162.6 cm; Wt 167.4 kg
[~2019-04-13 02:11] MED LIST changes: +AZO CRANBERRY1 EAC1 PO; +AZO URINARY PAI95 MG PO; +CLON.5 PO; +COMBIVENT RESPIM4 GM INH; +Garlic Oil1000 MG PO; +Isosorbide Mono30 MG PO; +MANNOSE50 GM PO; +MUCUS ER600 M1 PO; +NITR100CA PO; +POTA10T PO
[2019-04-13 02:46] LABS: BASOPHILS ABSOLUTE AUTO 0.06 K/mm3 (0.00-0.23); BASOPHILS PERCENT AUTO 1 % (0-2); EOSINOPHILS ABSOLUTE AUTO 0.18 K/mm3 (0.00-0.68); EOSINOPHILS PERCENT AUTO 2 % (0-6); Hemoglobin 13.6 g/dL (11.5-16.0); IMMATURE GRAN ABSOLUTE AUTO 0.05 K/mm3 (0.00-0.10); IMMATURE GRAN PERCENT AUTO 0 % (0-1); LYMPHOCYTES ABSOLUTE AUTO 2.79 K/mm3 (0.84-5.20); LYMPHOCYTES PERCENT AUTO 23 % (21-46); MONOCYTES PERCENT AUTO 10 % (4-13); Mean Corpuscular HGB 26.9 pg (26.0-34.0); Mean Corpuscular HGB Conc 30.9 g/dL (31.5-36.5); Mean Corpuscular Volume 87 fL (80-100); Mean Platelet Volume 10.7 fL (9.1-12.4); NEUTROPHILS ABSOLUTE AUTO 7.72 K/mm3 (1.96-9.15); NEUTROPHILS PERCENT AUTO 64 % (41-73); Platelet Count 298 K/mm3 (150-400); RDW Coefficient Variation 16.3 % (11.7-14.2); RDW Standard Deviation 52.4 fL (35.1-46.3); Red Blood Cell Count 5.05 M/mm3 (3.80-5.20)
[2019-04-13 03:05] LABS: Alanine Aminotransfer (ALT/SGP 59 U/L (12-78); Albumin/Globulin Ratio 0.7 (0.8-1.8); Alk Phos 97 U/L (50-136); Anion Gap 4 mmol/L (6-16); Aspartate Aminotrans (AST/SGOT 37 U/L (12-37); Bilirubin, Total 0.3 mg/dL (0.1-1.0); Blood Urea Nitrogen 13 mg/dL (8-24); Bun/Creatinine Ratio 15.6 (12.0-20.0); CO2, Blood 31 mmol/L (21-32); Calcium, Blood 9.4 mg/dL (8.5-10.1); Chloride, Blood 105 mmol/L (98-108); Creatinine, Blood 0.83 mg/dL (0.40-1.00); Globulin, Blood 4.3 g/dL (2.2-4.0); Glomerular Filtration Rate >60 (60-); Glucose, Blood 119 mg/dL (70-99); Potassium, Blood 3.2 mmol/L (3.5-5.5); Sodium, Blood 140 mmol/L (136-145); Total Protein, Blood 7.3 g/dL (6.4-8.2); Troponin I <0.015 ng/mL (0.000-0.040)
== END 2019-04-13 04:26 | disposition home or self-care (01) ==
LOC: ER 02:11
PROVIDERS: Emergency Medicine
DX: R07.9 Chest pain, unspecified (principal); E11.40 Type 2 diabetes mellitus with diabetic neuropathy, unspecified; J45.909 Unspecified asthma, uncomplicated; I25.2 Old myocardial infarction; F20.9 Schizophrenia, unspecified; Z91.02 Food additives allergy status; Z88.0 Allergy status to penicillin; Z88.8 Allergy status to other drugs, medicaments and biological substances; Z88.1 Allergy status to other antibiotic agents; Z88.7 Allergy status to serum and vaccine; Z91.018 Allergy to other foods; Z88.2 Allergy status to sulfonamides; Z79.899 Other long term (current) drug therapy; Z79.82 Long term (current) use of aspirin; Z79.51 Long term (current) use of inhaled steroids; Z87.891 Personal history of nicotine dependence
CPT/HCPCS: 71046; 80053; 84484; 85025; 93005; 93010; 99285-25

== ENCOUNTER 2019-04-19 00:24 | Emergency (ER) | payer OTHER ==
[~2019-04-19] VITALS: Ht 162.6 cm; Wt 167.4 kg
[2019-04-19 03:18] LABS: BASOPHILS ABSOLUTE AUTO 0.06 K/mm3 (0.00-0.23); BASOPHILS PERCENT AUTO 0 % (0-2); EOSINOPHILS ABSOLUTE AUTO 0.11 K/mm3 (0.00-0.68); EOSINOPHILS PERCENT AUTO 1 % (0-6); Hematocrit 49.3 % (33.0-51.0); Hemoglobin 15.2 g/dL (11.5-16.0); IMMATURE GRAN ABSOLUTE AUTO 0.06 K/mm3 (0.00-0.10); IMMATURE GRAN PERCENT AUTO 0 % (0-1); LYMPHOCYTES ABSOLUTE AUTO 2.75 K/mm3 (0.84-5.20); LYMPHOCYTES PERCENT AUTO 20 % (21-46); MONOCYTES ABSOLUTE AUTO 0.93 K/mm3 (0.16-1.47); MONOCYTES PERCENT AUTO 7 % (4-13); Mean Corpuscular HGB 26.7 pg (26.0-34.0); Mean Corpuscular HGB Conc 30.8 g/dL (31.5-36.5); Mean Corpuscular Volume 87 fL (80-100); Mean Platelet Volume 10.5 fL (9.1-12.4); NEUTROPHILS ABSOLUTE AUTO 10.12 K/mm3 (1.96-9.15); NEUTROPHILS PERCENT AUTO 72 % (41-73); Platelet Count 296 K/mm3 (150-400); RDW Coefficient Variation 16.5 % (11.7-14.2); RDW Standard Deviation 51.9 fL (35.1-46.3); White Blood Cell Count 14.03 K/mm3 (4.00-11.30)
[2019-04-19 03:36] LABS: Alanine Aminotransfer (ALT/SGP 64 U/L (12-78); Albumin, Blood 3.3 g/dL (3.4-5.0); Albumin/Globulin Ratio 0.6 (0.8-1.8); Alk Phos 117 U/L (50-136); Anion Gap 8 mmol/L (6-16); Aspartate Aminotrans (AST/SGOT 43 U/L (12-37); Bilirubin, Total 0.4 mg/dL (0.1-1.0); Blood Urea Nitrogen 19 mg/dL (8-24); Bun/Creatinine Ratio 17.4 (12.0-20.0); CO2, Blood 29 mmol/L (21-32); Calcium, Blood 9.9 mg/dL (8.5-10.1); Chloride, Blood 104 mmol/L (98-108); Creatinine, Blood 1.09 mg/dL (0.40-1.00); Globulin, Blood 5.1 g/dL (2.2-4.0); Glomerular Filtration Rate 56 (60-); Glucose, Blood 138 mg/dL (70-99); Potassium, Blood 3.5 mmol/L (3.5-5.5); Sodium, Blood 141 mmol/L (136-145); Total Protein, Blood 8.4 g/dL (6.4-8.2); Troponin I <0.015 ng/mL (0.000-0.040)
== END 2019-04-19 07:16 | disposition home or self-care (01) ==
LOC: ER 00:24
PROVIDERS: Emergency Medicine
DX: R07.9 Chest pain, unspecified (principal); E11.9 Type 2 diabetes mellitus without complications; J45.909 Unspecified asthma, uncomplicated; I25.2 Old myocardial infarction; Z79.82 Long term (current) use of aspirin; Z79.899 Other long term (current) drug therapy
CPT/HCPCS: 36415; 71046; 80053; 83690; 83880; 84484; 85025; 85379; 93005; 93010; 96374; 99285-25; J2405

== ENCOUNTER → 2019-04-27 | Outpatient (CLI) | payer OTHER ==
[~2019-04-27] MED LIST changes: +BUSP10 PO; +K-Dur20 MEQ PO
[2019-04-27 14:38] LABS: Source, Urine Clean Catch
[2019-04-27 19:47] LABS: Bacteria Many /hpf; Squamous Epithelial Cells Few /hpf (Few)
== END | disposition home or self-care (01) ==
LOC: LAB 13:56 → LAB SHORT 13:56
PROVIDERS: Family Medicine
DX: R82.79 Other abnormal findings on microbiological examination of urine (principal)
CPT/HCPCS: 81015; 87077; 87086; 87186

== ENCOUNTER 2019-04-28 21:27 | Emergency (ER) | payer OTHER ==
[~2019-04-28] VITALS: Ht 162.6 cm; Wt 162.4 kg
[~2019-04-28 21:27] MED LIST changes: -BUSP10 PO; -K-Dur20 MEQ PO
[2019-04-28] MEDS ORDERED: BUSP10 PO (21:34)
[2019-04-28 22:32] LABS: BASOPHILS ABSOLUTE AUTO 0.06 K/mm3 (0.00-0.23); BASOPHILS PERCENT AUTO 1 % (0-2); EOSINOPHILS ABSOLUTE AUTO 0.08 K/mm3 (0.00-0.68); EOSINOPHILS PERCENT AUTO 1 % (0-6); Hematocrit 42.3 % (33.0-51.0); IMMATURE GRAN ABSOLUTE AUTO 0.03 K/mm3 (0.00-0.10); IMMATURE GRAN PERCENT AUTO 0 % (0-1); LYMPHOCYTES ABSOLUTE AUTO 2.63 K/mm3 (0.84-5.20); LYMPHOCYTES PERCENT AUTO 28 % (21-46); MONOCYTES ABSOLUTE AUTO 1.15 K/mm3 (0.16-1.47); MONOCYTES PERCENT AUTO 12 % (4-13); Mean Corpuscular HGB 26.4 pg (26.0-34.0); Mean Corpuscular HGB Conc 30.7 g/dL (31.5-36.5); Mean Corpuscular Volume 86 fL (80-100); Mean Platelet Volume 10.6 fL (9.1-12.4); NEUTROPHILS ABSOLUTE AUTO 5.39 K/mm3 (1.96-9.15); NEUTROPHILS PERCENT AUTO 58 % (41-73); Platelet Count 235 K/mm3 (150-400); RDW Coefficient Variation 15.9 % (11.7-14.2); RDW Standard Deviation 50.1 fL (35.1-46.3); Red Blood Cell Count 4.93 M/mm3 (3.80-5.20); White Blood Cell Count 9.34 K/mm3 (4.00-11.30)
[2019-04-28 22:53] LABS: Alanine Aminotransfer (ALT/SGP 50 U/L (12-78); Albumin, Blood 2.9 g/dL (3.4-5.0); Albumin/Globulin Ratio 0.7 (0.8-1.8); Alk Phos 99 U/L (50-136); Anion Gap 8 mmol/L (6-16); Aspartate Aminotrans (AST/SGOT 29 U/L (12-37); Bilirubin, Total 0.2 mg/dL (0.1-1.0); Blood Urea Nitrogen 16 mg/dL (8-24); Bun/Creatinine Ratio 16.2 (12.0-20.0); CO2, Blood 29 mmol/L (21-32); Calcium, Blood 9.2 mg/dL (8.5-10.1); Chloride, Blood 104 mmol/L (98-108); Creatinine, Blood 0.99 mg/dL (0.40-1.00); Globulin, Blood 4.4 g/dL (2.2-4.0); Glomerular Filtration Rate >60 (60-); Glucose, Blood 144 mg/dL (70-99); Sodium, Blood 141 mmol/L (136-145); Total Protein, Blood 7.3 g/dL (6.4-8.2); Troponin I <0.015 ng/mL (0.000-0.040)
== END 2019-04-28 23:57 | disposition home or self-care (01) ==
LOC: ER 21:27
PROVIDERS: Emergency Medicine
DX: R07.9 Chest pain, unspecified (principal); J45.909 Unspecified asthma, uncomplicated; E11.40 Type 2 diabetes mellitus with diabetic neuropathy, unspecified; I25.2 Old myocardial infarction; K21.9 Gastro-esophageal reflux disease without esophagitis; Z91.02 Food additives allergy status; Z88.0 Allergy status to penicillin; Z88.8 Allergy status to other drugs, medicaments and biological substances; Z91.018 Allergy to other foods; Z88.1 Allergy status to other antibiotic agents; Z88.7 Allergy status to serum and vaccine; Z88.2 Allergy status to sulfonamides; Z79.899 Other long term (current) drug therapy; Z87.891 Personal history of nicotine dependence
CPT/HCPCS: 36415; 80053; 84484; 85025; 93005; 93010; 96374; 99284-25; J2405

== ENCOUNTER → 2019-05-08 | Outpatient (CLI) | payer OTHER ==
[~2019-05-08] MED LIST changes: +BUSP10 PO; +K-Dur20 MEQ PO
== END | disposition home or self-care (01) ==
LOC: LAB 11:38 → LAB SHORT 11:38
DX: R30.0 Dysuria (principal)
CPT/HCPCS: 87086

== ENCOUNTER → 2019-05-13 | Outpatient (CLI) | payer OTHER | END | disposition home or self-care (01) | LOC: LAB SHORT → LAB 14:01 → LAB SHORT 21:09 | DX: H92.11 Otorrhea, right ear (principal); H92.01 Otalgia, right ear | CPT/HCPCS: 87070; 87205 ==

== ENCOUNTER 2019-05-20 21:04 | Emergency (ER) | payer OTHER ==
[~2019-05-20] VITALS: Ht 162.6 cm; Wt 163.3 kg
[~2019-05-20 21:04] MED LIST changes: -K-Dur20 MEQ PO
[2019-05-20 21:27] LABS: BASOPHILS ABSOLUTE AUTO 0.06 K/mm3 (0.00-0.23); BASOPHILS PERCENT AUTO 1 % (0-2); EOSINOPHILS ABSOLUTE AUTO 0.14 K/mm3 (0.00-0.68); EOSINOPHILS PERCENT AUTO 1 % (0-6); Hematocrit 43.8 % (33.0-51.0); Hemoglobin 13.6 g/dL (11.5-16.0); IMMATURE GRAN ABSOLUTE AUTO 0.05 K/mm3 (0.00-0.10); IMMATURE GRAN PERCENT AUTO 0 % (0-1); LYMPHOCYTES ABSOLUTE AUTO 2.64 K/mm3 (0.84-5.20); LYMPHOCYTES PERCENT AUTO 24 % (21-46); MONOCYTES ABSOLUTE AUTO 0.81 K/mm3 (0.16-1.47); MONOCYTES PERCENT AUTO 7 % (4-13); Mean Corpuscular HGB 26.4 pg (26.0-34.0); Mean Corpuscular HGB Conc 31.1 g/dL (31.5-36.5); Mean Corpuscular Volume 85 fL (80-100); Mean Platelet Volume 10.5 fL (9.1-12.4); NEUTROPHILS ABSOLUTE AUTO 7.53 K/mm3 (1.96-9.15); NEUTROPHILS PERCENT AUTO 67 % (41-73); Platelet Count 281 K/mm3 (150-400); RDW Coefficient Variation 16.4 % (11.7-14.2); RDW Standard Deviation 50.4 fL (35.1-46.3); Red Blood Cell Count 5.15 M/mm3 (3.80-5.20); White Blood Cell Count 11.23 K/mm3 (4.00-11.30)
[2019-05-20 21:47] LABS: Alanine Aminotransfer (ALT/SGP 55 U/L (12-78); Albumin/Globulin Ratio 0.7 (0.8-1.8); Alk Phos 117 U/L (50-136); Anion Gap 6 mmol/L (6-16); Aspartate Aminotrans (AST/SGOT 41 U/L (12-37); Bilirubin, Total 0.2 mg/dL (0.1-1.0); Blood Urea Nitrogen 13 mg/dL (8-24); Bun/Creatinine Ratio 15.2 (12.0-20.0); CO2, Blood 30 mmol/L (21-32); Calcium, Blood 9.1 mg/dL (8.5-10.1); Chloride, Blood 105 mmol/L (98-108); Creatinine, Blood 0.85 mg/dL (0.40-1.00); Globulin, Blood 4.5 g/dL (2.2-4.0); Glomerular Filtration Rate >60 (60-); Glucose, Blood 161 mg/dL (70-99); Potassium, Blood 2.8 mmol/L (3.5-5.5); Sodium, Blood 141 mmol/L (136-145); Total Protein, Blood 7.5 g/dL (6.4-8.2); Troponin I <0.015 ng/mL (0.000-0.040)
[2019-05-20] MEDS ORDERED: K-Dur20 MEQ PO (23:47)
== END 2019-05-21 00:04 | disposition home or self-care (01) ==
LOC: ER 21:04
PROVIDERS: Emergency Medicine
DX: E87.6 Hypokalemia (principal); F41.9 Anxiety disorder, unspecified; E11.9 Type 2 diabetes mellitus without complications; Z87.891 Personal history of nicotine dependence
CPT/HCPCS: 36415; 71046; 80053; 84484; 85025; 93005; 93010; 96374; 96375; 99285-25; J2060; J2405

== ENCOUNTER 2019-05-25 20:19 | Emergency (ER) | payer OTHER ==
[~2019-05-25] VITALS: Ht 160 cm; Wt 163.3 kg
[~2019-05-25 20:19] MED LIST changes: +K-Dur20 MEQ PO
[2019-05-25 20:48] LABS: BASOPHILS ABSOLUTE AUTO 0.06 K/mm3 (0.00-0.23); BASOPHILS PERCENT AUTO 1 % (0-2); EOSINOPHILS ABSOLUTE AUTO 0.14 K/mm3 (0.00-0.68); EOSINOPHILS PERCENT AUTO 1 % (0-6); Hematocrit 44.2 % (33.0-51.0); Hemoglobin 13.7 g/dL (11.5-16.0); IMMATURE GRAN ABSOLUTE AUTO 0.05 K/mm3 (0.00-0.10); IMMATURE GRAN PERCENT AUTO 1 % (0-1); LYMPHOCYTES ABSOLUTE AUTO 2.22 K/mm3 (0.84-5.20); LYMPHOCYTES PERCENT AUTO 22 % (21-46); MONOCYTES PERCENT AUTO 10 % (4-13); Mean Corpuscular HGB 26.4 pg (26.0-34.0); Mean Corpuscular Volume 85 fL (80-100); Mean Platelet Volume 10.7 fL (9.1-12.4); NEUTROPHILS ABSOLUTE AUTO 6.63 K/mm3 (1.96-9.15); NEUTROPHILS PERCENT AUTO 66 % (41-73); Platelet Count 250 K/mm3 (150-400); RDW Coefficient Variation 16.5 % (11.7-14.2); RDW Standard Deviation 51.1 fL (35.1-46.3); Red Blood Cell Count 5.19 M/mm3 (3.80-5.20)
[2019-05-25 21:03] LABS: Alanine Aminotransfer (ALT/SGP 44 U/L (12-78); Albumin, Blood 2.9 g/dL (3.4-5.0); Albumin/Globulin Ratio 0.6 (0.8-1.8); Alk Phos 94 U/L (50-136); Anion Gap 6 mmol/L (6-16); Aspartate Aminotrans (AST/SGOT 38 U/L (12-37); Bilirubin, Total 0.2 mg/dL (0.1-1.0); Blood Urea Nitrogen 15 mg/dL (8-24); CO2, Blood 30 mmol/L (21-32); Calcium, Blood 9.2 mg/dL (8.5-10.1); Chloride, Blood 104 mmol/L (98-108); Creatinine, Blood 0.88 mg/dL (0.40-1.00); Globulin, Blood 4.6 g/dL (2.2-4.0); Glomerular Filtration Rate >60 (60-); Glucose, Blood 130 mg/dL (70-99); Potassium, Blood 3.4 mmol/L (3.5-5.5); Sodium, Blood 140 mmol/L (136-145); Total Protein, Blood 7.5 g/dL (6.4-8.2); Troponin I <0.015 ng/mL (0.000-0.040)
== END 2019-05-25 22:10 | disposition home or self-care (01) ==
LOC: ER 20:19
PROVIDERS: Emergency Medicine
DX: F41.9 Anxiety disorder, unspecified (principal); R07.9 Chest pain, unspecified; Z88.0 Allergy status to penicillin; Z88.1 Allergy status to other antibiotic agents; Z88.8 Allergy status to other drugs, medicaments and biological substances; Z91.018 Allergy to other foods; Z79.899 Other long term (current) drug therapy; E11.40 Type 2 diabetes mellitus with diabetic neuropathy, unspecified; J45.909 Unspecified asthma, uncomplicated; I25.2 Old myocardial infarction; K21.9 Gastro-esophageal reflux disease without esophagitis; Z87.891 Personal history of nicotine dependence
CPT/HCPCS: 36415; 71046; 80053; 84484; 85025; 93005; 93010; 99284-25

== ENCOUNTER 2019-07-04 10:39 | Day surgery (SDC) | payer OTHER ==
[~2019-07-04] VITALS: Ht 162.6 cm; Wt 161.1 kg
--- NOTE | 2019-07-04 11:17 | NUR ---
Ambulatory in Day Surgery History, Chart, Medications and Allergies reviewed before start of procedure.Patient confirms NPO status and agrees with scheduled surgery.PT REPORTS CP YESTERDAY AND WEDNESDAY. SHE IS UNSURE WHETHER IT WAS ACTUAL CARDIAC PAIN OR "ANXIETY." SHE STATES THAT IT WENT AWAY ON IT'S OWN. SHE DID TAKE HER IMDUR AND METOPROLOL THIS AM. NO CP AT PRESENT, BUT PT REPORTS FEELING ANXIOUS. LUNGS TIGHT THROUGH OUT WITH SCATTERED EXPIRATORY WZ-O2 SAT 97% ON RA. Patient States Post-Procedure ride home has been arranged.
--- NOTE | 2019-07-04 11:22 | NUR ---
PT REPORTS 7/10 ABDOMINAL PAIN. SHE STATES THAT A 4-5/10 IS A TOLERABLE LEVEL FOR HER.
--- NOTE | 2019-07-04 12:24 | NUR ---
CHARLEST NEB GIVEN PER DR. LING ORDER. D50 1 AMP GIVEN FOR CBG 61-PER ORDERS.
--- NOTE | 2019-07-04 13:21 | NUR ---
07/04/19 1321 Yoli Rincon History, Chart, Medications and Allergies reviewed before start of procedure. MAC CASE WITH DR. LING. SEE ANETHESIA RECORD FOR CARE.
--- NOTE | 2019-07-04 13:46 | NUR ---
RECIEVED PATIENT FROM ENDO ROOM 1 RECIEVED REPORT FROM MELINA BRAVO PATIENT GROGGY AND SLEEPY BUT AROUSES TO VOICE.
--- NOTE | 2019-07-04 14:58 | NUR ---
Discharge instructions reviewed with patient. Patient verbalizes understanding. Copy given to patient to take home. Patient States Post-Procedure ride home has been arranged. Discharged via wheelchair to private car for ride home.
== END 2019-07-04 22:52 | disposition home or self-care (01) ==
LOC: ORSCMMR 10:39 → ORD 10:45 → ORSCMMR 10:45
PROVIDERS: Student in an Organized Health Care Education/Training Program
PROC: 0DB68ZX Excision of Stomach, Via Natural or Artificial Opening Endoscopic, Diagnostic (ICD-10-PCS; principal; 2019-07-04 12:15)
PROC: 0DB58ZX Excision of Esophagus, Via Natural or Artificial Opening Endoscopic, Diagnostic (ICD-10-PCS; principal; 2019-07-04 12:15)
PROC: 0DB48ZX Excision of Esophagogastric Junction, Via Natural or Artificial Opening Endoscopic, Diagnostic (ICD-10-PCS; principal; 2019-07-04 12:15)
PROC: 0DB98ZX Excision of Duodenum, Via Natural or Artificial Opening Endoscopic, Diagnostic (ICD-10-PCS; principal; 2019-07-04 12:15)
DX: R10.11 Right upper quadrant pain (principal); K31.7 Polyp of stomach and duodenum; E11.9 Type 2 diabetes mellitus without complications; G47.33 Obstructive sleep apnea (adult) (pediatric); F25.9 Schizoaffective disorder, unspecified; F43.10 Post-traumatic stress disorder, unspecified; B19.20 Unspecified viral hepatitis C without hepatic coma; K76.0 Fatty (change of) liver, not elsewhere classified; E28.2 Polycystic ovarian syndrome; E66.01 Morbid (severe) obesity due to excess calories; Z68.44 Body mass index [BMI] 60.0-69.9, adult; Z79.84 Long term (current) use of oral hypoglycemic drugs; Z79.899 Other long term (current) drug therapy; Z87.891 Personal history of nicotine dependence
CPT/HCPCS: 82947; 88305; 88342; J2250; J2704; J7120

== ENCOUNTER 2019-07-14 22:54 | Emergency (ER) | payer OTHER ==
[~2019-07-14] VITALS: Ht 162.6 cm; Wt 158.8 kg
[2019-07-14 23:37] LABS: BASOPHILS ABSOLUTE AUTO 0.08 K/mm3 (0.00-0.23); BASOPHILS PERCENT AUTO 1 % (0-2); EOSINOPHILS ABSOLUTE AUTO 0.19 K/mm3 (0.00-0.68); EOSINOPHILS PERCENT AUTO 1 % (0-6); IMMATURE GRAN ABSOLUTE AUTO 0.04 K/mm3 (0.00-0.10); IMMATURE GRAN PERCENT AUTO 0 % (0-1); LYMPHOCYTES ABSOLUTE AUTO 2.94 K/mm3 (0.84-5.20); LYMPHOCYTES PERCENT AUTO 22 % (21-46); MONOCYTES ABSOLUTE AUTO 1.22 K/mm3 (0.16-1.47); MONOCYTES PERCENT AUTO 9 % (4-13); Mean Corpuscular HGB Conc 30.4 g/dL (31.5-36.5); Mean Corpuscular Volume 86 fL (80-100); Mean Platelet Volume 10.7 fL (9.1-12.4); NEUTROPHILS ABSOLUTE AUTO 8.72 K/mm3 (1.96-9.15); NEUTROPHILS PERCENT AUTO 66 % (41-73); Platelet Count 274 K/mm3 (150-400); RDW Coefficient Variation 17.4 % (11.7-14.2); RDW Standard Deviation 54.1 fL (35.1-46.3); Red Blood Cell Count 5.38 M/mm3 (3.80-5.20); White Blood Cell Count 13.19 K/mm3 (4.00-11.30)
[2019-07-14 23:58] LABS: Alanine Aminotransfer (ALT/SGP 53 U/L (12-78); Albumin, Blood 3.1 g/dL (3.4-5.0); Albumin/Globulin Ratio 0.7 (0.8-1.8); Alk Phos 98 U/L (50-136); Anion Gap 5 mmol/L (6-16); Aspartate Aminotrans (AST/SGOT 37 U/L (12-37); Bilirubin, Total 0.2 mg/dL (0.1-1.0); Blood Urea Nitrogen 15 mg/dL (8-24); Bun/Creatinine Ratio 14.2 (12.0-20.0); CO2, Blood 32 mmol/L (21-32); Calcium, Blood 9.4 mg/dL (8.5-10.1); Chloride, Blood 105 mmol/L (98-108); Creatinine, Blood 1.06 mg/dL (0.40-1.00); Globulin, Blood 4.7 g/dL (2.2-4.0); Glomerular Filtration Rate 58 (60-); Glucose, Blood 117 mg/dL (70-99); Potassium, Blood 3.2 mmol/L (3.5-5.5); Sodium, Blood 142 mmol/L (136-145); Total Protein, Blood 7.8 g/dL (6.4-8.2); Troponin I <0.015 ng/mL (0.000-0.040)
== END 2019-07-15 03:10 | disposition home or self-care (01) ==
LOC: ER 22:54
PROVIDERS: Emergency Medicine
DX: R07.9 Chest pain, unspecified (principal); E87.6 Hypokalemia; E11.9 Type 2 diabetes mellitus without complications; J45.909 Unspecified asthma, uncomplicated; I25.2 Old myocardial infarction; K21.9 Gastro-esophageal reflux disease without esophagitis; Z87.891 Personal history of nicotine dependence; Z79.82 Long term (current) use of aspirin; Z79.899 Other long term (current) drug therapy; Z91.018 Allergy to other foods; Z91.048 Other nonmedicinal substance allergy status; Z88.5 Allergy status to narcotic agent; Z88.8 Allergy status to other drugs, medicaments and biological substances; Z88.0 Allergy status to penicillin; Z88.2 Allergy status to sulfonamides; Z91.012 Allergy to eggs; Z88.1 Allergy status to other antibiotic agents
CPT/HCPCS: 36415; 71046; 80053; 84484; 85025; 93005; 93010; 99285-25

== ENCOUNTER 2019-07-22 01:56 | Emergency (ER) | payer OTHER ==
[~2019-07-22] VITALS: Ht 162.6 cm; Wt 158.8 kg
[2019-07-22 02:28] LABS: BASOPHILS ABSOLUTE AUTO 0.05 K/mm3 (0.00-0.23); BASOPHILS PERCENT AUTO 0 % (0-2); EOSINOPHILS ABSOLUTE AUTO 0.17 K/mm3 (0.00-0.68); EOSINOPHILS PERCENT AUTO 1 % (0-6); Hematocrit 45.4 % (33.0-51.0); Hemoglobin 14.2 g/dL (11.5-16.0); IMMATURE GRAN ABSOLUTE AUTO 0.03 K/mm3 (0.00-0.10); IMMATURE GRAN PERCENT AUTO 0 % (0-1); LYMPHOCYTES PERCENT AUTO 20 % (21-46); MONOCYTES ABSOLUTE AUTO 0.86 K/mm3 (0.16-1.47); MONOCYTES PERCENT AUTO 7 % (4-13); Mean Corpuscular HGB 26.2 pg (26.0-34.0); Mean Corpuscular HGB Conc 31.3 g/dL (31.5-36.5); Mean Corpuscular Volume 84 fL (80-100); Mean Platelet Volume 10.8 fL (9.1-12.4); NEUTROPHILS ABSOLUTE AUTO 8.39 K/mm3 (1.96-9.15); NEUTROPHILS PERCENT AUTO 71 % (41-73); Platelet Count 242 K/mm3 (150-400); RDW Standard Deviation 53.8 fL (35.1-46.3); Red Blood Cell Count 5.42 M/mm3 (3.80-5.20)
[2019-07-22 02:48] LABS: Alanine Aminotransfer (ALT/SGP 57 U/L (12-78); Albumin/Globulin Ratio 0.7 (0.8-1.8); Alk Phos 102 U/L (50-136); Anion Gap 6 mmol/L (6-16); Aspartate Aminotrans (AST/SGOT 54 U/L (12-37); Bilirubin, Total 0.3 mg/dL (0.1-1.0); Blood Urea Nitrogen 19 mg/dL (8-24); Bun/Creatinine Ratio 18.3 (12.0-20.0); CO2, Blood 29 mmol/L (21-32); Calcium, Blood 9.4 mg/dL (8.5-10.1); Chloride, Blood 107 mmol/L (98-108); Creatinine, Blood 1.04 mg/dL (0.40-1.00); Globulin, Blood 4.4 g/dL (2.2-4.0); Glomerular Filtration Rate 60 (60-); Glucose, Blood 144 mg/dL (70-99); Potassium, Blood 3.5 mmol/L (3.5-5.5); Sodium, Blood 142 mmol/L (136-145); Total Protein, Blood 7.4 g/dL (6.4-8.2); Troponin I <0.015 ng/mL (0.000-0.040)
== END 2019-07-22 03:47 | disposition home or self-care (01) ==
LOC: ER 01:56
PROVIDERS: Emergency Medicine
DX: K76.0 Fatty (change of) liver, not elsewhere classified (principal); M25.511 Pain in right shoulder; E11.40 Type 2 diabetes mellitus with diabetic neuropathy, unspecified; J45.909 Unspecified asthma, uncomplicated; I25.2 Old myocardial infarction; K21.9 Gastro-esophageal reflux disease without esophagitis; Z91.02 Food additives allergy status; Z88.0 Allergy status to penicillin; Z88.8 Allergy status to other drugs, medicaments and biological substances; Z88.2 Allergy status to sulfonamides; Z91.018 Allergy to other foods; Z88.1 Allergy status to other antibiotic agents; Z91.048 Other nonmedicinal substance allergy status; Z88.7 Allergy status to serum and vaccine; Z79.899 Other long term (current) drug therapy; Z79.82 Long term (current) use of aspirin; Z87.891 Personal history of nicotine dependence
CPT/HCPCS: 36415; 71045; 80053; 83690; 84484; 85025; 93005; 93010; 96374; 96375; 99284-25; J2405; J3010

== ENCOUNTER 2019-08-16 00:14 | Emergency (ER) | payer OTHER ==
[~2019-08-16] VITALS: Ht 162.6 cm; Wt 159.2 kg
[2019-08-16 00:33] LABS: BASOPHILS ABSOLUTE AUTO 0.08 K/mm3 (0.00-0.23); BASOPHILS PERCENT AUTO 1 % (0-2); EOSINOPHILS ABSOLUTE AUTO 0.17 K/mm3 (0.00-0.68); EOSINOPHILS PERCENT AUTO 1 % (0-6); Hemoglobin 13.2 g/dL (11.5-16.0); IMMATURE GRAN ABSOLUTE AUTO 0.05 K/mm3 (0.00-0.10); IMMATURE GRAN PERCENT AUTO 0 % (0-1); LYMPHOCYTES ABSOLUTE AUTO 3.03 K/mm3 (0.84-5.20); LYMPHOCYTES PERCENT AUTO 25 % (21-46); MONOCYTES ABSOLUTE AUTO 0.98 K/mm3 (0.16-1.47); MONOCYTES PERCENT AUTO 8 % (4-13); Mean Corpuscular HGB 26.7 pg (26.0-34.0); Mean Corpuscular HGB Conc 31.4 g/dL (31.5-36.5); Mean Corpuscular Volume 85 fL (80-100); Mean Platelet Volume 10.7 fL (9.1-12.4); NEUTROPHILS ABSOLUTE AUTO 7.91 K/mm3 (1.96-9.15); NEUTROPHILS PERCENT AUTO 65 % (41-73); Platelet Count 249 K/mm3 (150-400); RDW Coefficient Variation 17.4 % (11.7-14.2); RDW Standard Deviation 53.5 fL (35.1-46.3); Red Blood Cell Count 4.95 M/mm3 (3.80-5.20); White Blood Cell Count 12.22 K/mm3 (4.00-11.30)
[2019-08-16 00:52] LABS: Alanine Aminotransfer (ALT/SGP 40 U/L (12-78); Albumin, Blood 2.9 g/dL (3.4-5.0); Albumin/Globulin Ratio 0.7 (0.8-1.8); Alk Phos 89 U/L (50-136); Anion Gap 4 mmol/L (6-16); Aspartate Aminotrans (AST/SGOT 43 U/L (12-37); Bilirubin, Total 0.4 mg/dL (0.1-1.0); Blood Urea Nitrogen 16 mg/dL (8-24); Bun/Creatinine Ratio 17.7 (12.0-20.0); CO2, Blood 30 mmol/L (21-32); Calcium, Blood 8.5 mg/dL (8.5-10.1); Chloride, Blood 106 mmol/L (98-108); Creatinine, Blood 0.91 mg/dL (0.40-1.00); Globulin, Blood 4.3 g/dL (2.2-4.0); Glomerular Filtration Rate >60 (60-); Glucose, Blood 148 mg/dL (70-99); Potassium, Blood 3.3 mmol/L (3.5-5.5); Sodium, Blood 140 mmol/L (136-145); Total Protein, Blood 7.2 g/dL (6.4-8.2); Troponin I <0.015 ng/mL (0.000-0.040)
== END 2019-08-16 01:20 | disposition home or self-care (01) ==
LOC: ER 00:14
PROVIDERS: Emergency Medicine
DX: R07.9 Chest pain, unspecified (principal); E11.9 Type 2 diabetes mellitus without complications; I10 Essential (primary) hypertension; J45.909 Unspecified asthma, uncomplicated; I25.2 Old myocardial infarction; Z91.02 Food additives allergy status; Z88.0 Allergy status to penicillin; Z88.8 Allergy status to other drugs, medicaments and biological substances; Z88.2 Allergy status to sulfonamides; Z91.048 Other nonmedicinal substance allergy status; Z91.018 Allergy to other foods; Z91.012 Allergy to eggs; Z88.1 Allergy status to other antibiotic agents; Z88.5 Allergy status to narcotic agent; Z79.899 Other long term (current) drug therapy; Z79.82 Long term (current) use of aspirin; Z87.891 Personal history of nicotine dependence
CPT/HCPCS: 80053; 84484; 85025; 93005; 93010; 99285-25

== ENCOUNTER 2019-10-01 20:34 | Emergency (ER) | payer OTHER ==
[~2019-10-01] VITALS: Ht 162.6 cm; Wt 154.7 kg
== END 2019-10-02 05:56 | disposition home or self-care (01) ==
LOC: ER 20:34
DX: N39.0 Urinary tract infection, site not specified (principal); Z88.0 Allergy status to penicillin; Z88.1 Allergy status to other antibiotic agents; Z88.2 Allergy status to sulfonamides; Z91.018 Allergy to other foods; Z91.012 Allergy to eggs; Z88.8 Allergy status to other drugs, medicaments and biological substances; Z88.7 Allergy status to serum and vaccine; Z88.6 Allergy status to analgesic agent; Z79.899 Other long term (current) drug therapy; Z79.82 Long term (current) use of aspirin; Z79.4 Long term (current) use of insulin; E11.40 Type 2 diabetes mellitus with diabetic neuropathy, unspecified; J45.909 Unspecified asthma, uncomplicated; I25.2 Old myocardial infarction; K21.9 Gastro-esophageal reflux disease without esophagitis; Z87.891 Personal history of nicotine dependence
CPT/HCPCS: 99283; A9270-GY

== ENCOUNTER → 2019-10-01 | Outpatient (CLI) | payer OTHER | END | disposition home or self-care (01) | LOC: LAB SHORT 15:15 → LAB 15:15 | DX: N30.01 Acute cystitis with hematuria (principal); R30.0 Dysuria | CPT/HCPCS: 87077; 87086; 87147; 87186 ==

== ENCOUNTER 2019-12-13 00:23 | Emergency (ER) | payer OTHER ==
[~2019-12-13] VITALS: Ht 162.6 cm; Wt 149.7 kg
[2019-12-13 00:44] LABS: BASOPHILS ABSOLUTE AUTO 0.04 K/mm3 (0.00-0.23); BASOPHILS PERCENT AUTO 0 % (0-2); EOSINOPHILS ABSOLUTE AUTO 0.18 K/mm3 (0.00-0.68); EOSINOPHILS PERCENT AUTO 1 % (0-6); Hematocrit 43.8 % (33.0-51.0); Hemoglobin 13.5 g/dL (11.5-16.0); IMMATURE GRAN ABSOLUTE AUTO 0.06 K/mm3 (0.00-0.10); IMMATURE GRAN PERCENT AUTO 1 % (0-1); LYMPHOCYTES ABSOLUTE AUTO 2.38 K/mm3 (0.84-5.20); LYMPHOCYTES PERCENT AUTO 19 % (21-46); MONOCYTES ABSOLUTE AUTO 1.26 K/mm3 (0.16-1.47); MONOCYTES PERCENT AUTO 10 % (4-13); Mean Corpuscular HGB 26.7 pg (26.0-34.0); Mean Corpuscular HGB Conc 30.8 g/dL (31.5-36.5); Mean Corpuscular Volume 87 fL (80-100); Mean Platelet Volume 10.7 fL (9.1-12.4); NEUTROPHILS ABSOLUTE AUTO 8.83 K/mm3 (1.96-9.15); NEUTROPHILS PERCENT AUTO 69 % (41-73); Platelet Count 241 K/mm3 (150-400); RDW Coefficient Variation 17.2 % (11.7-14.2); RDW Standard Deviation 53.9 fL (35.1-46.3); Red Blood Cell Count 5.06 M/mm3 (3.80-5.20); White Blood Cell Count 12.75 K/mm3 (4.00-11.30)
[2019-12-13 01:02] LABS: Alanine Aminotransfer (ALT/SGP 40 U/L (12-78); Albumin/Globulin Ratio 0.7 (0.8-1.8); Alk Phos 83 U/L (50-136); Anion Gap 4 mmol/L (6-16); Aspartate Aminotrans (AST/SGOT 27 U/L (12-37); Bilirubin, Total 0.3 mg/dL (0.1-1.0); Blood Urea Nitrogen 13 mg/dL (8-24); CO2, Blood 32 mmol/L (21-32); Calcium, Blood 9.4 mg/dL (8.5-10.1); Chloride, Blood 106 mmol/L (98-108); Globulin, Blood 4.3 g/dL (2.2-4.0); Glomerular Filtration Rate >60 (60-); Glucose, Blood 112 mg/dL (70-99); Potassium, Blood 3.4 mmol/L (3.5-5.5); Sodium, Blood 142 mmol/L (136-145); Total Protein, Blood 7.3 g/dL (6.4-8.2)
[2019-12-13 01:55] LABS: Source, Urine Clean Catch
[2019-12-13 01:58] LABS: Bilirubin, Urine Neg (Neg); Blood, Urine Neg (Neg); Glucose Qualitative, Urine Neg (Neg); Ketones, Urine Neg (Neg); Leukocyte Esterase, Urine Neg (Neg); Nitrite, Urine Neg (Neg); Protein, Urine Neg (Neg); Urobilinogen, Urine NORM (Normal); pH, Urine 6.5 (5.0-8.0)
[2019-12-13 02:00] LABS: Appearance, Urine Clear (Clear); Color, Urine Yellow (P-Yellow)
== END 2019-12-13 02:30 | disposition home or self-care (01) ==
LOC: ER 00:23
PROVIDERS: Emergency Medicine
DX: R10.31 Right lower quadrant pain (principal); G89.29 Other chronic pain; R11.0 Nausea; F25.9 Schizoaffective disorder, unspecified; J45.909 Unspecified asthma, uncomplicated; I25.2 Old myocardial infarction; E11.40 Type 2 diabetes mellitus with diabetic neuropathy, unspecified; K21.9 Gastro-esophageal reflux disease without esophagitis; Z91.02 Food additives allergy status; Z88.0 Allergy status to penicillin; Z88.8 Allergy status to other drugs, medicaments and biological substances; Z88.2 Allergy status to sulfonamides; Z88.1 Allergy status to other antibiotic agents; Z88.4 Allergy status to anesthetic agent; Z91.012 Allergy to eggs; Z88.7 Allergy status to serum and vaccine; Z88.6 Allergy status to analgesic agent; Z88.5 Allergy status to narcotic agent; Z91.018 Allergy to other foods; Z91.09 Other allergy status, other than to drugs and biological substances; Z79.899 Other long term (current) drug therapy; Z79.82 Long term (current) use of aspirin; Z87.891 Personal history of nicotine dependence
CPT/HCPCS: 80053; 81003; 81025; 85025; 99284; A9270

== ENCOUNTER 2020-01-02 20:00 | Emergency (ER) | payer OTHER ==
[~2020-01-02] VITALS: Ht 162.6 cm; Wt 149.7 kg
[~2020-01-02 20:00] MED LIST changes: +ALBU3IS INH; +ERGO50000 PO; +IPRAT-ALBUT 0.5-3 ML INH; +MYRBETRIQ50 MG PO; +NESINA25 MG PO; +Nitrofurantoin100 M1 PO; +POTCHL20ER PO; +Sanctura20 MG PO; +TOPI100 PO; +ZYRTEC10 M2 PO
== END 2020-01-03 00:55 | disposition home or self-care (01) ==
LOC: ER 20:00
DX: F20.9 Schizophrenia, unspecified (principal); F43.9 Reaction to severe stress, unspecified; F32.9 Major depressive disorder, single episode, unspecified; I10 Essential (primary) hypertension; E11.9 Type 2 diabetes mellitus without complications; I25.2 Old myocardial infarction; K21.9 Gastro-esophageal reflux disease without esophagitis; J45.909 Unspecified asthma, uncomplicated; Z91.5 Personal history of self-harm; Z91.02 Food additives allergy status; Z88.0 Allergy status to penicillin; Z91.018 Allergy to other foods; Z88.2 Allergy status to sulfonamides; Z88.8 Allergy status to other drugs, medicaments and biological substances; Z91.048 Other nonmedicinal substance allergy status; Z91.012 Allergy to eggs; Z88.7 Allergy status to serum and vaccine; Z79.899 Other long term (current) drug therapy; Z79.82 Long term (current) use of aspirin; Z87.891 Personal history of nicotine dependence
CPT/HCPCS: 99285

== ENCOUNTER 2020-01-19 22:32 | Emergency (ER) | payer OTHER ==
[~2020-01-19] VITALS: Ht 162.6 cm; Wt 147.0 kg
== END 2020-01-20 02:56 | disposition home or self-care (01) ==
LOC: ER 22:32
DX: E11.40 Type 2 diabetes mellitus with diabetic neuropathy, unspecified (principal); F25.9 Schizoaffective disorder, unspecified; I10 Essential (primary) hypertension; J45.909 Unspecified asthma, uncomplicated; I25.2 Old myocardial infarction; K21.9 Gastro-esophageal reflux disease without esophagitis; F41.1 Generalized anxiety disorder; Z91.018 Allergy to other foods; Z88.0 Allergy status to penicillin; Z88.2 Allergy status to sulfonamides; Z88.8 Allergy status to other drugs, medicaments and biological substances; Z91.048 Other nonmedicinal substance allergy status; Z88.3 Allergy status to other anti-infective agents; Z91.012 Allergy to eggs; Z88.1 Allergy status to other antibiotic agents; Z88.6 Allergy status to analgesic agent; Z88.5 Allergy status to narcotic agent; Z91.02 Food additives allergy status; Z88.7 Allergy status to serum and vaccine; Z79.899 Other long term (current) drug therapy; Z79.82 Long term (current) use of aspirin; Z79.84 Long term (current) use of oral hypoglycemic drugs; Z87.891 Personal history of nicotine dependence
CPT/HCPCS: 99283; Q0163

== ENCOUNTER 2020-01-24 00:40 | Observation (INO) | payer OTHER ==
[~2020-01-24] VITALS: Ht 162.6 cm; Wt 101.6 kg
[2020-01-24 01:57] LABS: BASOPHILS ABSOLUTE AUTO 0.07 K/mm3 (0.00-0.23); BASOPHILS PERCENT AUTO 1 % (0-2); EOSINOPHILS PERCENT AUTO 2 % (0-6); Hematocrit 44.1 % (33.0-51.0); Hemoglobin 13.7 g/dL (11.5-16.0); IMMATURE GRAN ABSOLUTE AUTO 0.04 K/mm3 (0.00-0.10); IMMATURE GRAN PERCENT AUTO 0 % (0-1); LYMPHOCYTES ABSOLUTE AUTO 2.73 K/mm3 (0.84-5.20); LYMPHOCYTES PERCENT AUTO 26 % (21-46); MONOCYTES ABSOLUTE AUTO 0.73 K/mm3 (0.16-1.47); MONOCYTES PERCENT AUTO 7 % (4-13); Mean Corpuscular HGB 27.1 pg (26.0-34.0); Mean Corpuscular HGB Conc 31.1 g/dL (31.5-36.5); Mean Corpuscular Volume 87 fL (80-100); Mean Platelet Volume 10.6 fL (9.1-12.4); NEUTROPHILS ABSOLUTE AUTO 6.86 K/mm3 (1.96-9.15); NEUTROPHILS PERCENT AUTO 64 % (41-73); Platelet Count 236 K/mm3 (150-400); RDW Coefficient Variation 15.9 % (11.7-14.2); RDW Standard Deviation 50.7 fL (35.1-46.3); Red Blood Cell Count 5.05 M/mm3 (3.80-5.20); White Blood Cell Count 10.63 K/mm3 (4.00-11.30)
[2020-01-24 02:18] LABS: Alanine Aminotransfer (ALT/SGP 34 U/L (12-78); Albumin, Blood 3.2 g/dL (3.4-5.0); Albumin/Globulin Ratio 0.7 (0.8-1.8); Alk Phos 93 U/L (50-136); Anion Gap 3 mmol/L (6-16); Aspartate Aminotrans (AST/SGOT 19 U/L (12-37); Bilirubin, Total 0.4 mg/dL (0.1-1.0); Blood Urea Nitrogen 14 mg/dL (8-24); Bun/Creatinine Ratio 14.7 (12.0-20.0); CO2, Blood 31 mmol/L (21-32); Calcium, Blood 8.9 mg/dL (8.5-10.1); Chloride, Blood 110 mmol/L (98-108); Creatinine, Blood 0.95 mg/dL (0.40-1.00); Ethanol (Alcohol), Blood, Med <3 mg/dL; Globulin, Blood 4.3 g/dL (2.2-4.0); Glomerular Filtration Rate >60 (60-); Glucose, Blood 109 mg/dL (70-99); Potassium, Blood 3.7 mmol/L (3.5-5.5); Sodium, Blood 144 mmol/L (136-145); Total Protein, Blood 7.5 g/dL (6.4-8.2)
[2020-01-24 05:44] LABS: U Amphetamine Screen Not Detected; U Barbituate Screen Not Detected; U Benzodiazapine Screen DETECTED; U Buprenorphine Screen Not Detected; U Cannabinoids Screen Not Detected; U Cocaine Screen Not Detected; U Methadone Screen Not Detected; U Methamphetamine Screen Not Detected; U Opiates Screen Not Detected; U Oxycodone Screen Not Detected; U Phencyclidine Screen Not Detected; U Propoxyphene Screen Not Detected
[2020-01-24 06:07] LABS: Source, Urine Clean Catch
[2020-01-24 06:17] LABS: Appearance, Urine Hazy (Clear); Bilirubin, Urine Neg (Neg); Blood, Urine 1+ (Neg); Color, Urine Yellow (P-Yellow); Glucose Qualitative, Urine 4+ (Neg); Ketones, Urine Neg (Neg); Leukocyte Esterase, Urine 2+ (Neg); Nitrite, Urine Pos (Neg); Protein, Urine 1+ (Neg); Specific Gravity, Urine 1.025 (1.003-1.022); Urobilinogen, Urine NORM (Normal)
[2020-01-24 06:25] LABS: Bacteria Many /hpf; Squamous Epithelial Cells Few /hpf (Few); White Blood Cells, Urine 50-100 /hpf (0-5)
[2020-01-24 06:27] LABS: Salicylate <1.7 mg/dL (2.8-20.0)
[2020-01-24 06:35] LABS: Acetaminophen, Random <2.0 ug/mL (10.0-30.0)
[2020-01-24] MEDS ORDERED: ALPR1 (06:41)
== END 2020-01-24 14:45 | disposition home or self-care (01) ==
LOC: ER 00:40 → EOR 00:41
PROVIDERS: ADMIT Emergency Medicine
DX: R45.851 Suicidal ideations (principal); E11.9 Type 2 diabetes mellitus without complications; I10 Essential (primary) hypertension; J45.909 Unspecified asthma, uncomplicated; K21.9 Gastro-esophageal reflux disease without esophagitis; Z79.82 Long term (current) use of aspirin; G47.33 Obstructive sleep apnea (adult) (pediatric); Z79.84 Long term (current) use of oral hypoglycemic drugs; Z88.6 Allergy status to analgesic agent; Z88.1 Allergy status to other antibiotic agents; Z91.012 Allergy to eggs; Z88.5 Allergy status to narcotic agent; Z88.0 Allergy status to penicillin; Z88.2 Allergy status to sulfonamides; Z88.8 Allergy status to other drugs, medicaments and biological substances; Z91.018 Allergy to other foods
CPT/HCPCS: 36415; 80053; 81001; 85025; G0480; J3486

== ENCOUNTER 2020-03-06 01:35 | Emergency (ER) | payer OTHER ==
[~2020-03-06] VITALS: Ht 162.6 cm; Wt 147.0 kg
[~2020-03-06 01:35] MED LIST changes: +ALPR1
[2020-03-06 03:19] LABS: Source, Urine Clean Catch
[2020-03-06 03:21] LABS: Appearance, Urine Clear (Clear); Bilirubin, Urine Neg (Neg); Blood, Urine Neg (Neg); Color, Urine Yellow (P-Yellow); Glucose Qualitative, Urine 4+ (Neg); Ketones, Urine Neg (Neg); Leukocyte Esterase, Urine 1+ (Neg); Nitrite, Urine Neg (Neg); Protein, Urine Neg (Neg); Specific Gravity, Urine 1.015 (1.003-1.022); Urobilinogen, Urine NORM (Normal)
[2020-03-06 03:42] LABS: Bacteria Few /hpf; Red Blood Cells, Urine Not Seen /hpf (0-2); Squamous Epithelial Cells Rare /hpf (Few); White Blood Cells, Urine 25-50 /hpf (0-5)
[2020-03-06] MEDS ORDERED: CEFP200 PO (03:48)
[2020-03-06] MEDS ORDERED: Pyridium200 MG PO (03:51)
== END 2020-03-06 04:26 | disposition home or self-care (01) ==
LOC: ER 01:35
PROVIDERS: Emergency Medicine
DX: N39.0 Urinary tract infection, site not specified (principal); E11.9 Type 2 diabetes mellitus without complications; F25.9 Schizoaffective disorder, unspecified; I10 Essential (primary) hypertension; J45.909 Unspecified asthma, uncomplicated; K21.9 Gastro-esophageal reflux disease without esophagitis; F41.9 Anxiety disorder, unspecified; Z88.0 Allergy status to penicillin; Z88.2 Allergy status to sulfonamides; Z88.8 Allergy status to other drugs, medicaments and biological substances; Z91.02 Food additives allergy status; Z88.1 Allergy status to other antibiotic agents; Z88.7 Allergy status to serum and vaccine; Z88.6 Allergy status to analgesic agent; Z91.018 Allergy to other foods; Z79.899 Other long term (current) drug therapy; Z79.82 Long term (current) use of aspirin
CPT/HCPCS: 36415; 81001; 87077; 87086; 87186; 99284; A9270-GY

== ENCOUNTER → 2020-03-12 | Outpatient (CLI) | payer OTHER ==
[~2020-03-12] MED LIST changes: +CEFP200 PO; +Pyridium200 MG PO
== END | disposition home or self-care (01) ==
LOC: LAB SHORT 11:15 → PLD 11:15
DX: R10.9 Unspecified abdominal pain (principal); R31.9 Hematuria, unspecified
CPT/HCPCS: 87077; 87086; 87186